=== PATIENT | female | born 1955 | race Caucasian/White ===

== ENCOUNTER → 2019-04-05 13:48 | Outpatient (BNVA) | payer OTHER, SELFPAY | PROVIDERS: Family Provider Nurse Practitioner; PCP Nurse Practitioner; Referring Provider Nurse Practitioner; Visit Provider Specialist | DX: M25.522 Pain in left elbow (principal) | CPT/HCPCS: 73080 ==

== ENCOUNTER 2019-09-06 13:13 | Outpatient (CLI) | payer OTHER, SELFPAY ==
--- NOTE | 2019-09-06 13:16 | MM_ITS ---
WS: [id number] BILATERAL DIGITAL SCREENING MAMMOGRAM WITH CAD CLINICAL INFORMATION: SCREENING HISTORY: Screening mammogram. No current complaints. COMPARISON: TECHNIQUE: Bilateral CC and MLO. FINDINGS: The breast are composed of extremely dense tissue, which can limit the detection of small underlying mass lesions. No suspicious focal mass, asymmetry, calcifications, or architectural distortion. No ev idence of malignancy. Stable tiny punctate calcifications. MM/[place] [id number] IMPRESSION: BI-RADS: 2-Benign FOLLOW UP: 1 Year Follow-up Recommend return to annual screening mammography.
== END 2019-09-06 13:14 | disposition home or self-care (01) ==
LOC: RADSHAW 13:14
PROVIDERS: PCP Nurse Practitioner; Visit Provider Nurse Practitioner
DX: Z12.31 Encounter for screening mammogram for malignant neoplasm of breast (principal)
CPT/HCPCS: 77067

== ENCOUNTER 2020-06-24 08:34 | Emergency (ER) | payer OTHER, MEDICARE, SELFPAY ==
[2020-06-24 09:09] VITALS: BP 142/90; PULSE 78; RESP 14; TEMP 36.8; O2SAT 98; BMI 22.5
--- NOTE | 2020-06-24 09:44 | USCV_ITS ---
Tawnya Reed Age: 64 Gender: F : 1955 Exam Date: 06/24/2020 10:02 Ordering Phys: Bry Koehler Technologist: Audrey Hale [place] [facility] [place]: CALF TENDERNESS HISTORY: Lower extremity pain. PROCEDURES: Venous duplex imaging was performed in only the right lower extremity. The following venous structures were evaluated: common femoral vein, profunda vein, proximal portion of the greater saphenous vein, superficial femoral vein, and the popliteal vein. In addition, the posterior tibial and peroneal trunk were evaluated. Serial compression, augmentation maneuvers, and spectral Doppler flow evaluation were performed. FINDINGS: Normal 2-D Doppler and augmentation and compressibility throughout the lower extremity venous structures. Additional imaging through the proximal calf veins also reveals no thrombus. Limited evaluation of the greater saphenous vein is patent with no thrombus.. CONCLUSIONS No evidence of right lower extremity DVT. Rocco Shafer MD (Electronically Signed) Final Date: 25 June 2020 16:03 S
--- NOTE | 2020-06-24 09:47 | W.ED.EXTPRO ---
HPI - Extremity Problem General: Chief complaint: Extremity Problem,Nontraumatic Stated complaint: POSS BLOOD CLOT IN LEG Time Seen by Provider: 06/24/20 09:32 History of Present Illness: HPI Narrative: Patient is a 64-year-old female comes to the ED with nontraumatic pain in right lower leg. Patient says that cramping and aching pain in right lower leg started approximately 4 days ago. Last night she started developing right calf tenderness as well. Patient is concerned for possible blood clot and says she took the [employer] Covid vaccine back on May 30. She denies any chest pain, shortness of breath, hemoptysis or history of blood clots. Patient states she is not on any current blood thinners. Associated symptoms: Deny chest pain, fever(s) or rash Review of Systems Const: Denies: fever(s), chills or fatigue Eyes: Denies: change in vision or eye discomfort ENMT: Denies: throat pain, odynophagia, nasal discharge or nasal congestion Card: Denies: chest pain, palpitations, edema, swelling of feet/ankles, dyspnea on exertion or orthopnea Resp: Denies: dyspnea, productive cough or non-productive cough GI: Denies: abdominal pain, nausea, vomiting, diarrhea, constipation or hematochezia : Denies: flank pain, dysuria or hematuria Musc: Reports: extremity pain (Right lower leg); Denies: neck pain, back pain or extremity swelling Skin/Breast: Denies: rash or new lesions Neuro: Denies: headache(s), numbness in extremities or weakness in extremities [facility] PFSH: Medical History Chronic hypertension Diagnosed in 1999 and is controlled with medication managed by the [facility]. 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 Does not have a paver layer No pertinent past medical history Denies diabetes, asthma, hypertension, seizures, DVT/PE PCP: MIGUEL Card[facility] ([facility]) PTSD (post-traumatic stress disorder) Takes antianxiety antidepressive meds for this [facility]. Type 2 diabetes mellitus Diet controlled and she states that her last hemoglobin A1c was close to normal Surgical History Hx of vaginal surgery Operative reports were requested and received from Dr. Elizalde. 06/20/2012-----> patient underwent an anterior and posterior colporrhaphy for cystocele and rectocele, manuelito plication. On exam in the clinic she had been noted to have a grade 3 bladder prolapse with MARITO prior to surgery. S/P arthroscopic surgery of right knee Arthroscopic right knee surgery for torn cartilage in 1977, [place] S/P cholecystectomy Laparoscopic cholecystectomy in 2012 S/P hysterectomy LAVH, BSO, Laparoscopic uterosacral ligament suspension with laparoscopic moschcowitz culdoplasty (enterocele repair) on 11/10/[address] He and Dr. Han. Pathology showed benign cervix, endometrium, myometrium and bilateral tubes and ovaries. S/P lumpectomy, left breast x2- Performed in [place] S/P tonsillectomy Done at age 43 S/P tubal ligation Done through umbilicus. Status post hysteroscopy 1998- with endometrial ablation, Performed in [place] for menorrhagia Status post surgery Skin cancer removal: 2002- removed from face. Performed in [place] 2014- Removed from arm by Dr Harrison in [place], [place] Family History Sister Breast cancer diagnosed at age 40 Mother Hyperlipidemia Hypertension Father Breast cancer Heart disease Hypertension Grandmother Diabetes maternal Denies family history of Colon cancer Ovarian cancer Uterine cancer Thyroid condition Stroke Physical Exam Const: COMMON NORMALS: no acute distress, patient oriented x3 and alert GENERAL APPEARANCE: cooperative and comfortable HENMT: COMMON NORMALS: normocephalic HEAD & SCALP: normocephalic MOUTH: Normal oral and palatal mucosa present THROAT: posterior oropharynx normal and uvula midline Neck/C-Spine: COMMON NORMALS: supple GENERAL: Yes normal visual inspection Resp: COMMON NORMALS: normal respiratory effort, No retractions, No use of accessory muscles and clear to auscultation bilaterally EFFORT & INSPECTION: Yes able to speak in complete sentences, No tachypneic, No respiratory distress and No labored AUSCULTATION: clear to auscultation bilaterally Cardio: COMMON NORMALS: regular rate, regular rhythm, S1 normal heart sound present, S2 normal heart sound present, No gallops present (Cardio), No clicks present (Cardio), No murmurs present (Cardio) and Peripheral pulses 2+ throughout RATE: regular rate RHYTHM: regular rhythm HEART SOUNDS: S1 normal heart sound present and S2 normal heart sound present PERIPHERAL PULSES: Peripheral pulses 2+ throughout GI: COMMON NORMALS: Normal to inspection, nondistended, normoactive bowel sounds present, Soft to palpation, non-tender and no masses PALPATION: Yes Soft to palpation : COMMON NORMALS: Yes no CVA tenderness BLADDER/KIDNEY EXAM: Yes no CVA tenderness Back/Pelvis: COMMON NORMALS: no CVA tenderness Extremity: COMMON NORMALS: no pedal edema GENERAL: Yes normal exam except as noted and Yes calf tenderness (Right calf tenderness) Neuro: COMMON NORMALS: patient oriented x3 and moves all extremities SENSORIUM/ORIENTATION: Yes alert Skin: GENERAL SKIN EXAM: dry skin Course Vital Signs: Vital signs: Vital Signs Temperature 98.3 F 06/24/20 09:09 Pulse Rate 68 06/24/20 10:56 Respiratory Rate 18 06/24/20 10:56 Blood Pressure 142/90 06/24/20 09:09 Pulse Oximetry 97 06/24/20 10:56 MDM - Extremity (Nontraumatic) MDM Narrative: Medical decision making narrative: Patient is a 64-year-old female comes to the ED with nontraumatic right lower extremity pain. Patient took [employer] shot back on May 30, 2020 and is concerned for potential blood clot. Denies any chest pain, shortness of breath or hemoptysis. Denies any past history of blood clots. On exam patient appears nontoxic does not in any acute distress. Vital stable. she does have some right calf tenderness. Ultrasound venous duplex of right lower extremity showed no DVTs or blood clots seen. Patient was diagnosed with right lower extremity pain and discharged home. She was told to rest ice and elevate right leg and to take aray-vzt-gzbluol ibuprofen or Tylenol for pain. Return to ED precautions given. Follow-up with PCP in 7 to 10 days reevaluation. Patient rested and agree with plan. Imaging Data^: US Vascular: Attestation: I personally reviewed and interpreted this imaging study as follows: Radiologist's impression: Ultrasound venous duplex right lower extremity?no DVTs or blood clots seen. Discharge Plan Discharge Patient Disposition: Home Clinical Impression: Lower extremity pain, right Condition: Stable Prescriptions: No Action albuterol sulfate 90 mcg/actuation aerosol powdr breath activated 1 inh INHALATION ONCE RF: 0 amlodipine 5 mg tablet 5 mg PO QDAY RF: 0 buspirone 10 mg tablet 10 mg PO BID RF: 0 cyanocobalamin (vitamin B-12) 1,000 mcg capsule 1,000 mcg PO QDAY RF: 0 fluoxetine 20 mg capsule 20 mg PO QDAY RF: 0 gemfibrozil 600 mg tablet 600 mg PO QDAY RF: 0 hydrochlorothiazide 25 mg tablet 25 mg PO QAM RF: 0 omeprazole 20 mg capsule,delayed release(DR/EC) 20 mg PO QDAY RF: 0 metoprolol succinate 25 mg capsule,sprinkle,ER 24hr 25 mg PO QDAY RF: 0 budesonide-formoterol [Symbicort] 160-4.5 mcg/actuation HFA aerosol inhaler 2 puff INHALATION BID RF: 0 oxybutynin chloride 5 mg tablet extended release 24hr 5 mg PO DAILY Qty: 60 RF: 0 Discharge Orders: Discharge ED (Routine); Ordered 06/24/20 Ordered By: Bry Koehler Referrals: Jackie Jenkins FNP [Primary Care Provider] - Discharge Diet: Regular Discharge Activity: Resume usual activity Activity Restrictions/Additional Instructions: Follow-up with medical provider as directed in 7 to 10 days for reevaluation. Rest, ice and elevate right leg. Take uwzm-qvr-kzhyaww ibuprofen, Tylenol or Aleve to help with pain. Continue taking all home medications as prescribed. Return to the ER or your medical provider if condition worsens. Please read and understand discharge instructions. If any questions, please ask. Coding Level of Care Code ED Tenant Relations Coordinator for Paul Fwd Exam Comprehensive
[2020-06-24 10:56] VITALS: PULSE 68; RESP 18; O2SAT 97
== END 2020-06-24 10:58 | disposition home or self-care (01) ==
PROVIDERS: Emergency Provider Physician Assistant; PCP Nurse Practitioner
DX: M79.604 Pain in right leg (principal); J44.9 Chronic obstructive pulmonary disease, unspecified; I10 Essential (primary) hypertension; E11.9 Type 2 diabetes mellitus without complications
CPT/HCPCS: 93971; 99282

== ENCOUNTER 2020-10-07 14:17 | Outpatient (CLI) | payer OTHER, MEDICARE, SELFPAY ==
[2020-10-07 16:52] LABS: Basophils % 0.7 %; Eosinophils # 0.1 10^3/uL (0.0-0.8); Eosinophils % 1.9 %; Hematocrit 37.1 % (37.0-47.0); Hemoglobin 12.6 g/dL (11.5-15.3); Lymphocytes # 1.9 10^3/uL (0.8-4.8); Lymphocytes % 32.7 %; Mean Corpuscular Hemoglobin 31.9 pg (28.0-34.0); Mean Corpuscular Volume 93.9 fL (81-99); Mean Platelet Volume 9.7 fL (7.4-10.4); Monocytes # 0.3 10^3/uL (0.2-0.9); Monocytes % 4.9 %; Neutrophils # 3.38 10^3/uL (1.8-7.7); Neutrophils % 59.4 %; Nucleated Red Blood Cells % 0 %; Platelet Count 450 10^3/cmm (130-400); Red Blood Count 3.95 10^6/uL (4.1-5.3); Red Cell Distribution Width 13.2 % (12.1-15.1); White Blood Count 5.7 10^3/uL (4.0-10.0)
[2020-10-07 17:24] LABS: Alanine Aminotransferase 10 U/L (0-33); Albumin Level 4.2 g/dL (3.5-5.2); Alkaline Phosphatase 92 IU/L (35-105); Anion Gap 14.9 (5-19); Aspartate Amino Transferase 14 U/L (0-32); Blood Urea Nitrogen 8 mg/dL (8-23); Calcium 9.5 mg/dL (8.5-10.5); Carbon Dioxide 29 mmol/L (22-29); Chloride 95 mmol/L (98-107); Globulin 3.9 g/dL (1.3-4.6); Glomerular Filtration Rate 83.5 mL/min (90-130); Glucose 204 mg/dL (65-115); Iron 65 ug/dL (37-145); Lactate Dehydrogenase 175 U/L (135-214); Osmolality Calculated 286 mOsm/kg (285-295); Percent Saturation 20.3 % (20-50); Sodium 136 mmol/L (136-145); Thyroid Stimulating Hormone 0.57 uIU/mL (0.27-4.20); Total Bilirubin 0.3 mg/dL (0.15-1.2); Total Iron Binding Capacity 319 mcg/dl; Total Protein 8.1 g/dL (6.6-8.7); Unsaturated Iron Binding 254 ug/dL (112-347)
[2020-10-07 17:40] LABS: Potassium 2.9 mmol/L (3.5-5.1)
--- NOTE | 2020-10-07 17:55 | ONC CON_ITS ---
Dr. Collazo New Patient Note Patient: Tawnya Reed Unit #: [id number]: 1955 Dicatated By: Moisés Collazo M.D.Date of Visit: Oct 07, 2020 Onc MED New Patient/Consult Referring Physician: Jackie Jenkins A.P.N. Chief Complaint: Thrombocytosis. History of Present Illness: This is a 65-year-old woman with a persistent, mild thrombocytosis. She has multiple medical illnesses, the most significant being COPD and pulmonary fibrosis. She indicates that she also has asbestosis. She apparently is being put on the list for lung transplant. She has been seeing Jackie Jenkins at the [facility] for her primary care. I have been asked to see her because of several recent blood counts have shown a mildly elevated platelet count. The initial study, from 09/12/2019, showed hemoglobin 14.9 g and hematocrit 43.7%. Red cell indices were normal. The white blood cell count was 7600 and the platelet count was 412,000. Her repeat CBC on 06/10/2020 showed similar findings. The most recent study, from 08/13/2020 showed hemoglobin 14.6 g with hematocrit 41.6%. The white blood cell count was 8800 and the platelet count was 441,000. She complains that she feels tired all the time, but that has been going on for quite a while. She is able to do light work. ECOG score is 1. Her appetite has not been good, and she has had episodes of nausea and vomiting, which she attributes to medication for her lung disease. She has had a weight loss of 13 pounds since May. She has not had fever. She sometimes has sweating at night. She has some sinus drainage and she has sore throat which comes and goes. She is short of breath with activity. She was having constant cough for 10 years, that has improved on her medication. She sometimes has chest pain, mostly in the upper right chest area. She has had chronic abdominal pain in the right upper quadrant area for at least the past 10 years. A specific cause for that has not been determined. She also has GERD and she has a history of Mclaughlin's esophagus. She has diarrhea, which she also attributes to the medication. She has not been aware of any blood in the stool. Her bladder function has been okay since the surgery in 2019. She has joint pain, mainly in the hips and knees. She also has back pain. She used to have migraine headaches, but those have resolved. She has occasional orthostatic lightheadedness. She reports having some pressure in the left side of her head. She has numbness in her right foot. She has chronic anxiety and depression, but it is adequately managed with medication. She also has chronic insomnia. She reports having easy bruising. She has no history of thromboembolic disease. Past Medical History: Her medical history includes anxiety, chronic abdominal pain, chronic obstructive pulmonary disease, depression, gastroesophageal reflux disease and history of Mclaughlin's esophagus, hyperlipidemia, hypertension, osteoporosis, post traumatic stress disorder, pulmonary asbestosis, pulmonary fibrosis, type II diabetes, and vitamin B12 deficiency. Past Surgical History: Her surgical/procedural history includes excision of benign breast lesions in 1997 and in 1999, bilateral cataract excisions in 2020, EGD and colonoscopy in 2019, laparoscopic vaginal hysterectomy/BSO and bladder tie up in 2019, excision of benign rectal lesion in 2018, cholecystectomy in 2007, endometrial ablation in 2004, bladder tie up in 2003, tonsillectomy in 2001, excision of basal cell skin cancer in 2000, arthroscopic right knee surgery in 1986, and tubal ligation in 1982. Medications: Albuterol Sulfate ((2.5 mg/3ml) 0.083%) Nebulization solution Inhalation four times a day PRN, Albuterol Sulfate Aerosol Powder, Breath Activated Inhalation 8x/d PRN, amLODIPine Besylate (5 mg) Tablet Oral daily, Bbdmjks-Ppuzeszgzdo-Kyttmnvpmg (160-9-4.8 mcg/act) Aerosol Inhalation b.i.d., busPIRone HCl (10 mg) Tablet Oral t.i.d. PRN, Cyanocobalamin Injection, FLUoxetine HCl 2 (20 mg) Tablet Oral daily, FLUoxetine HCl (20 mg) Capsule Oral daily, Gemfibrozil (600 mg) Tablet Oral ac (bid), hydroCHLOROthiazide (25 mg) Tablet Oral daily, Nintedanib Esylate (150 mg) Capsule Oral b.i.d., Omeprazole (20 mg) Capsule Delayed Release Oral daily, Potassium Chloride (20 meq) Pack Oral daily, Tiotropium [place] Monohydrate Aerosol, solution Inhalation daily, traZODone HCl (50 mg) Tablet Oral at bedtime PRN Allergies: NIKA Inhibitors, Atorvastatin Calcium, levoFLOXacin, oxyCODONE HCl, and SUMAtriptan Succinate. Social History: Ms. Reed is . She is retired from the [employer]. She has a history of smoking 1 pack of cigarettes daily for 40 years. She quit smoking in 2018. She does not drink alcohol. Family History: Father had coronary artery disease and with COPD at age 86. Mother still living age 86. She has coronary disease and peripheral arterial disease. A sister of breast cancer at age 45. Another sister and one brother are in good health. Review Of Symptoms: Constitutional - She complains that she is tired all the time. She is able to do light work. She has not had good appetite, attributable to medication. She has had a weight loss of 13 pounds since May. She has not had fever. She sometimes has sweating at night. ECOG score is 1, Eyes - She had cataract surgery in May, [facility] - No hearing loss or tinnitus. She has sinus drainage and she has sore throat 2 or 3 times a week. She says it comes and goes. She has no difficulty swallowing, Hematologic/Lymphatic - She has easy bruising, Respiratory - She has shortness of breath with more strenuous activity. She was having constant cough for 10 years, but that has improved with her medication. She has had chest pain at times, mostly in the upper right chest area. No hemoptysis, Cardiovascular - She has been seeing Dr. Marrero for chest pain, Gastrointestinal - She has episodes of nausea/vomiting, attributable to medication. She has acid reflux. She also has a history of Mclaughlin's esophagus. She also has had diarrhea. No blood in the stool or black stools, Genitourinary (F) - No dysuria or hematuria. No urinary frequency. No urgency or incontinence, Musculoskeletal - She has joint pain, mainly in the hips and knees. She also has back pain, Integumentary - No skin rash or other skin changes, Neurologic - She used to have migraine headaches, but those have resolved. She has occasional orthostatic lightheadedness and she sometimes has pressure on the left side of her head. She has some numbness in the right foot, Psychiatric - She has posttraumatic stress disorder with chronic anxiety and depression. It is adequately managed with medication. She also has chronic insomnia. Vital Signs: Performed on Oct 07, 2020 16:04: 5, 0, 22.46, 1.76 sq.m, 67 in, 97 %, 76 /min, 18 /min, 149/77 mm(hg) (HIGH), 97.1 F (LOW), and 143.4 lbs (HIGH). Physical Examination: Constitutional - She does not appear acutely ill, Eyes - Sclerae nonicteric. Conjunctivae clear, ENMT - No lesions noted in the oral cavity, Neck - No mass or thyromegaly, Hematologic/Lymphatic - No cervical, clavicular, or axillary adenopathy, Respiratory - Lungs are clear with diminished air movement bilaterally, Cardiovascular - Heart rhythm is regular. There is no murmur, gallop, or rub noted, Abdomen - Soft and non-tender. Liver and spleen are not enlarged. There is no abdominal mass or ascites noted and there is no inguinal adenopathy, Back/Spine - No spine or CVA tenderness noted, Extremities - No edema. Dorsalis pedis pulses are palpable bilaterally, Integumentary - No rashes. No suspicious skin lesions noted, Neurologic - No focal neurologic deficits noted. Problem List: 1. Mild thrombocytosis, reactive versus early stage myeloproliferative disease. 2. COPD. 3. Pulmonary fibrosis. 4. Asbestosis. 5. Hypertension. 6. Hyperlipidemia. 7. Type 2 diabetes, diet controlled. 8. GERD and history of Mclaughlin's esophagus. 9. Chronic abdominal pain. 10. Osteoporosis. 11. B12 deficiency. 12. PTSD with chronic anxiety and depression. Problems Addressed with this Encounter and Plan: Patient with persistent, mild thrombocytosis. This may be reactive, but she may very well have an early stage of a myeloproliferative neoplasm. The laboratory findings were reviewed with the patient and we discussed the clinic complications. She will have additional laboratory studies today to include CBC, comprehensive metabolic profile, LDH, sed rate, serum iron studies, and a TSH level. I will also request a molecular panel for myeloproliferative disease and I will review the blood smear. She will have further evaluation as indicated. Signed By: Moisés Collazo M.D. <<Signature on File>>
[2020-10-07 18:47] LABS: Erythrocyte Sedimentation Rate 88 mm/hr (0-15)
[2020-10-07 18:53] LABS: LAB Peripheral Smear Sent for Review; Slide Review Slide Review Perform
[2020-10-13 09:48] LABS: CALR Exon 9 Mutation NOT DETECTED (NOT DETECTED); CSF3R Exon 14/17 Mutation NOT DETECTED (NOT DETECTED); JAK2 Exon 12 Mutation NOT DETECTED (NOT DETECTED); JAK2 V617 Block Specimen ID NG; JAK2 V617 Clinical Indication NG; JAK2 V617 Mutation NOT DETECTED (NOT DETECTED); JAK2 V617 Specimen Source NG; MPL Exon 12 Mutation NOT DETECTED (NOT DETECTED)
== END 2020-10-07 14:18 | disposition home or self-care (01) ==
PROVIDERS: PCP Nurse Practitioner; Referring Provider Nurse Practitioner; Visit Provider Internal Medicine Medical Oncology
DX: D47.3 Essential (hemorrhagic) thrombocythemia (principal); J44.9 Chronic obstructive pulmonary disease, unspecified; J84.10 Pulmonary fibrosis, unspecified; J61 Pneumoconiosis due to asbestos and other mineral fibers; I10 Essential (primary) hypertension; E78.5 Hyperlipidemia, unspecified; E11.9 Type 2 diabetes mellitus without complications; K21.9 Gastro-esophageal reflux disease without esophagitis; K22.70 Barrett's esophagus without dysplasia; R10.9 Unspecified abdominal pain; G89.29 Other chronic pain; M81.0 Age-related osteoporosis without current pathological fracture; D51.9 Vitamin B12 deficiency anemia, unspecified; F43.10 Post-traumatic stress disorder, unspecified; F41.9 Anxiety disorder, unspecified; F32.9 Major depressive disorder, single episode, unspecified; Z79.899 Other long term (current) drug therapy
CPT/HCPCS: 80053; 81219; 81270; 81339; 83540; 83550; 83615; 84443; 85025; 85651; 88271; 88275; 88377; 99205

== ENCOUNTER 2020-10-09 09:22 | Outpatient (CLI) | payer OTHER, MEDICARE, SELFPAY ==
--- NOTE | 2020-10-09 09:36 | MM_ITS ---
WS: [id number] BILATERAL DIGITAL SCREENING MAMMOGRAPHY WITH CAD CLINICAL INFORMATION: SCREENING HISTORY: Screening mammogram. No current complaints. COMPARISON: September 06, 2019 TECHNIQUE: Bilateral CC and MLO views. FINDINGS: The breasts are composed of heterogeneous fibroglandular density tissue, which can limit the detectio n of small underlying mass lesions. No suspicious mass, asymmetry, calcifications, or architectural d istortion. No evidence of malignancy. Punctate calcifications. MM/[id number] IMPRESSION: BI-RADS: 2-Benign FOLLOW UP: 1 Year Follow-up Recommend return to annual screening mammography.
== END 2020-10-09 09:23 | disposition home or self-care (01) ==
LOC: RADSHAW 09:26
PROVIDERS: PCP Nurse Practitioner; Visit Provider Nurse Practitioner
DX: Z12.31 Encounter for screening mammogram for malignant neoplasm of breast (principal)
CPT/HCPCS: 77067

== ENCOUNTER 2020-10-31 07:26 | Outpatient (CLI) | payer OTHER, MEDICARE, SELFPAY ==
--- NOTE | 2020-10-31 07:38 | NMCV_ITS ---
NM emilia perf SPECT r/s* [id number] Tawnya Reed Age: 65 Gender: F : 1955 Exam Date: 10/31/2020 07:38 Ordering Phys: Aldo Marrero MD ([email or web address]) Technologist: ALEE Nolasco Exam Location: [facility] Indications: SHORTNESS OF BREATH STRESS TEST [facility] IMAGE PROTOCOL Rest/Stress 1 Dobutamine Day Radiopharmaceutical Dose (mCi) Administration Site Administered by Rest: Tc-99m 10.7 IV ALEE Mccann Sestamibi Stress:Tc-99m 32.9 IV ALEE Mccann Sestamisummer Rest: 31-Oct-2020 60 Discovery 630 Stress: 31-Oct-2020 15 Discovery 630 Radiopharmaceutical was injected at 86 % maximum heart rate. Images obtained in supine and prone position. SPECT RESULTS Technical Quality: Excellent Raw Data Analysis: Normal Image Corrections: No attenuation or motion correction applied Summed Stress Score: 0 Summed Rest Score: 0 Summed Difference Score: 0 PERFUSION FINDINGS Fairly uniform myocardial tracer uptake with no significant perfusion abnormalities. FUNCTIONAL RESULTS (calculated via Gated SPECT) Stress Image LV EF (%): 77 Stress EDV (mL):56 TID: 0.97 Stress ESV (mL):13 FUNCTIONAL FINDINGS: Segmental wall motion analysis revealing no gross wall motion abnormalities. IMPRESSIONS 1. Unremarkable myocardial perfusion imaging. 2. Normal LV ejection fraction 77%. 3. LV wall motion analysis revealing no gross wall motion normalities. 4. Normal LV volume. No significant coronary ischemia, based on the above findings Dr Aldo Marrero MD FACC (Electronically Signed) Final Date: 31 October 2020 15:10 S
--- NOTE | 2020-10-31 07:38 | ECG_ITS ---
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 Interpretive Statements NAME OF STUDY: DOBUTAMINE SESTAMIBI STRESS TEST INDICATION: [Shortness of Breath, ] PROCEDURE: At the baseline, the blood pressure was [] with a heart rate of []. The electrocardiogram showed sinus bradycardia with some nonspecific T wave changes.. The dobutamine was infused over a period of 10 minutes and 20 seconds. The maximum heart rate obtained was 137 (89 % of the maximum predicted heart rate). The blood pressure at that time was 148/66 mmHg. The patient was complaining of some chest tightness and shortness of breath with the peak dobutamine infusion. There was no significant electrocardiogram changes with the dobutamine infusion. The physical examination remained unchanged. No arrhythmias were seen on the monitor. Sestamibi was injected at the peak heart rate. During the recovery phase, the patient did not have any specific symptoms. The blood pressure at the end of the recovery phase was 153/74 with a heart rate of 94 per minute. CONCLUSION: 1. Normal EKG response to dobutamine infusion. 2. Patient induced chest tightness /shortness of breath 3. Appropriate heart rate and blood pressure response to review to infusion 4. Sestamibi/Sestamibi perfusion scan pending; see separate report. Electronically Signed On 11-01-2020 0:03:20 CDT by Aldo Marrero M.D. [email or web address]
[2020-10-31 07:52] VITALS: BMI 22.0
[2020-10-31] MEDS: DOBUTtamine 200 MG in sodium chloride 0.9% 34 ML 10 MG IV (09:36)
[2020-10-31] MEDS: atropine 0.1 mg/mL Syr 10 mL 0.5 MG IVP (09:45)
[2020-10-31 09:58] VITALS: BP 153/74; PULSE 97
--- NOTE | 2020-10-31 11:45 | USCV_ITS ---
Derek Tawnya Age: 65 Gender: F : 1955 Exam Date: 10/31/2020 08:06 Ordering Phys: Aldo Marrero MD ([email or web address]) Technologist: Exam Location: [facility] [place] Indication: COPD BP: 125 / 70 HR: 55 Rhythm: Sinus Technical Quality: Good MEASUREMENTS (Male / Female) Normal Values 2D ECHO LV Diastolic Diameter PLAX 3.6 cm 4.2 - 5.9 / 3.9 - 5.3 cm LV Systolic Diameter PLAX 2.0 cm IVS Diastolic Thickness 1.3 cm 0.6 - 1.0 / 0.6 - 0.9 cm IVS Systolic Thickness 1.3 cm LVPW Diastolic Thickness 1.0 cm 0.6 - 1.0 / 0.6 - 0.9 cm LVPW Systolic Thickness 1.2 cm LVOT Diameter 2.0 cm LV Ejection Fraction 2D Teich 76.7 % LV Ejection Fraction MOD 2C 60.7 % LV Ejection Fraction 2C AL 60.7 % LA Diameter 3.8 cm LA Width 3.2 cm LA Height 4.9 cm RA Width 3.7 cm RA Height 5.0 cm Aorta at Sinotubular Diameter 2.7 cm M-MODE LV Diastolic Diameter MM 4.9 cm 4.2 - 5.9 / 3.9 - 5.3 cm LV Systolic Diameter MM 3.5 cm LV Ejection Fraction MM Teich 54.4 % IVS Diastolic Thickness MM 1.3 cm 0.6 - 1.0 / 0.6 - 0.9 cm IVS Systolic Thickness MM 1.4 cm LVPW Diastolic Thickness MM 1.3 cm 0.6 - 1.0 / 0.6 - 0.9 cm LVPW Systolic Thickness MM 1.5 cm RV Diastolic Diameter MM 1.6 cm Aortic Annulus Diameter 3.4 cm LA Ao Ratio MM 1.2 MV E Point Septal Separation 0.6 cm DOPPLER AV Peak Velocity 171.0 cm/s LVOT Peak Velocity 113.0 cm/s AV Area Cont Eq vti 1.5 cm squared AV Area Cont Eq pk 2.2 cm squared MV Area PHT 5.0 cm squared Mitral E to A Ratio 0.8 MV E' Velocity 47.0 cm/s Mitral E to MV E' Ratio 9.9 Mitral E to LV E' Lateral Ratio 10.9 Mitral E to LV E' Septal Ratio 9.0 TR Peak Velocity 170.7 cm/s TR Peak Gradient 11.7 mmHg TV Peak E Velocity 104.0 cm/s Right Atrial Pressure 3.0 mmHg Pulmonary Artery Systolic Pressu 14.7 mmHg FINDINGS Left Ventricle Normal left ventricular size and systolic function, EF 77 %. No regional wall motion abnormalities. Mild left ventricular hypertrophy. Grade I/IV diastolic dysfunction (abnormal relaxation filling pattern), normal to mildly elevated filling pressures. Right Ventricle Normal right ventricular size and systolic function. Can right ventricular free wall Right Atrium The right atrium is normal in size. Left Atrium Left atrium, upper limit of normal size Mitral Valve Trace to mild mitral regurgitation Aortic Valve No gross abnormalities noted Tricuspid Valve No gross abnormalities noted Pulmonic Valve No gross abnormalities noted Pericardium Small pericardial effusion. Aorta Normal ascending aorta dimension. CONCLUSIONS Normal left ventricular size and systolic function, EF 77 %. No regional wall motion abnormalities. Mild left ventricular hypertrophy. Grade I/IV diastolic dysfunction (abnormal relaxation filling pattern), normal to mildly elevated filling pressures. Left atrium, upper limit of normal size. Trace to mild mitral regurgitation. Possible small pericardial effusion There are no intracardiac masses. No similar previous study is available for comparison. Dr Aldo Marrero MD FACC (Electronically Signed) Final Date: 31 October 2020 23:18 S
== END 2020-10-31 07:27 | disposition home or self-care (01) ==
PROVIDERS: PCP Nurse Practitioner; Visit Provider Internal Medicine Cardiovascular Disease
DX: R06.02 Shortness of breath (principal); R07.89 Other chest pain; J44.9 Chronic obstructive pulmonary disease, unspecified; I34.0 Nonrheumatic mitral (valve) insufficiency
CPT/HCPCS: 78452; 93017; 93306; A9500; J0461; J1250; J7050

== ENCOUNTER 2020-12-16 14:18 | Outpatient (CLI) | payer OTHER, SELFPAY ==
[2020-12-16 14:55] LABS: Basophils # 0.1 10^3/uL (0.0-0.1); Eosinophils # 0.2 10^3/uL (0.0-0.8); Eosinophils % 3.3 %; Hematocrit 38.2 % (37.0-47.0); Lymphocytes # 2.2 10^3/uL (0.8-4.8); Mean Corpuscular Hemoglobin 31.6 pg (28.0-34.0); Mean Corpuscular Volume 92.9 fl (81-99); Mean Platelet Volume 9.1 fL (7.4-10.4); Monocytes # 0.4 10^3/uL (0.2-0.9); Neutrophils # 3.18 10^3/uL (1.8-7.7); Neutrophils % 52.7 %; Nucleated Red Blood Cells % 0 %; Platelet Count 397 10^3/cmm (130-400); Red Blood Count 4.11 10^6/uL (4.1-5.3); Red Cell Distribution Width 13.2 % (12.1-15.1)
[2020-12-16 15:29] LABS: C Reactive Protein 13.8 mg/L (0.0-4.9)
[2020-12-17 17:11] LABS: Anti-Nuclear Antibody Screen NEGATIVE (NEGATIVE)
[2020-12-18 12:41] LABS: Erythrocyte Sedimentation Rate 62 mm/hr (0-15)
== END 2020-12-16 14:19 | disposition home or self-care (01) ==
LOC: ONCMED 14:21
PROVIDERS: PCP Nurse Practitioner; Visit Provider Internal Medicine Medical Oncology
DX: D75.839 Thrombocytosis, unspecified (principal); J44.9 Chronic obstructive pulmonary disease, unspecified; I10 Essential (primary) hypertension; E78.5 Hyperlipidemia, unspecified; E11.9 Type 2 diabetes mellitus without complications; K21.9 Gastro-esophageal reflux disease without esophagitis; E53.8 Deficiency of other specified B group vitamins; J84.10 Pulmonary fibrosis, unspecified; Z79.899 Other long term (current) drug therapy; Z87.891 Personal history of nicotine dependence
CPT/HCPCS: 36415; 85025; 85651; 86038; 86140; 86431

== ENCOUNTER → 2020-12-23 09:23 | Outpatient (BNVA) | payer OTHER, SELFPAY | PROVIDERS: PCP Nurse Practitioner; Visit Provider Internal Medicine Cardiovascular Disease | DX: Z01.818 Encounter for other preprocedural examination (principal) | CPT/HCPCS: 80048; 83880; 85025; 85610; 86850; 86900; 87635 ==

== ENCOUNTER 2020-12-24 13:49 | Outpatient (CLI) | payer OTHER, SELFPAY ==
--- NOTE | 2020-12-28 11:28 | ONC FU_ITS ---
Dr. Collazo Patient Follow-Up Note Patient: Tawnya Reed Unit #: [id number]: 1955 Dicatated By: Moisés Collazo M.D.Date of Visit:Dec 24, 2020 Onc Med Follow-up/Prog Note Chief Complaint: Thrombocytosis. History of Present Illness: This is a 65-year-old woman with a persistent, mild thrombocytosis. She has been found on routine follow-up care to have a mildly elevated platelet count. Her CCBC from 09/12/2019 showed nromal hemoglobin at 14.9 g with normal red cell indices. The white blood cell count was 7600 and the platelet count was 412,000. Her repeat CBC on 06/10/2020 showed similar findings. A more recent study, from 08/13/2020 showed hemoglobin 14.6 g with hematocrit 41.6%. The white blood cell count was 8800 and the platelet count was 441,000. I had seen her initially on 10/07/2020. Her CBC showed hemoglobin 12.6 g with hematocrit 37.1%. The red cell indices were normal. The white blood cell count was 5700. The platelet count was slightly elevated at 450,000. There were no remarkable findings on her blood smear. Her sed rate was significantly elevated at 88 mm/hour. Comprehensive metabolic profile was significant for low potassium at 2.9 mmol/L. Renal function was normal and the bilirubin and liver enzymes also were normal. LDH was normal 175 U/mL. A profile of molecular studies for myeloproliferative disorders was negative. Overall, the findings were consistent with a mild reactive thrombocytosis, though a specific underlying cause was not evident. Her other medical illnesses include hypertension, hyperlipidemia, type 2 diabetes, GERD, osteoporosis, and COPD. She has additional history of pulmonary asbestosis and pulmonary fibrosis. She also has history of Mclaughlin's esophagus, B12 deficiency, and chronic anxiety. She has a history of smoking 1 pack of cigarettes daily for 40 years. She is seen for a follow-up visit. She does complain that she feels tired, but she is able to do housework. ECOG score is 1. She complains that she is not hungry, she has gained weight. She does not have fever. She has occasional night sweating, about once a week. Her main complaint is that her whole body aches, mainly in her shoulders/upper arms and in her legs and feet. She has sore throat about every other day. She does not complain of cough. She has shortness of breath with activity. She is on CPAP. She has been having pain in the lateral chest area on both sides, worse on the right than the left. She says her stomach hurts all the time, but especially at night. She also complains that she has acid reflux all the time and she has a lot of gas . She has been having diarrhea. Bladder function has been okay. She also has pain in her lower back and right hip, which is chronic. She has pressure in her head and she occasionally has dizziness. She reports having numbness in her fingers at night. Medications: Albuterol Sulfate ((2.5 mg/3ml) 0.083%) Nebulization solution Inhalation four times a day PRN, amLODIPine Besylate (5 mg) Tablet Oral daily, Qawlqbl-Zqllpnlgrxq-Xbsjqsfgro (160-9-4.8 mcg/act) Aerosol Inhalation b.i.d., busPIRone HCl (10 mg) Tablet Oral t.i.d. PRN, Cyanocobalamin Injection, FLUoxetine HCl 2 (20 mg) Tablet Oral daily, Gemfibrozil (600 mg) Tablet Oral ac (bid), hydroCHLOROthiazide (25 mg) Tablet Oral daily, Nintedanib Esylate (150 mg) Capsule Oral b.i.d., Omeprazole (20 mg) Capsule Delayed Release Oral daily, Potassium Chloride (20 meq) Pack Oral daily, Tiotropium [place] Monohydrate Aerosol, solution Inhalation daily, traZODone HCl (25 mg) Tablet Oral at bedtime PRN Allergies: NIKA Inhibitors, Atorvastatin Calcium, levoFLOXacin, oxyCODONE HCl, and SUMAtriptan Succinate. Vital Signs: Performed on Dec 24, 2020 14:12 Height - 67.00 in Weight - 150.6 lbs (HIGH) BSA - 1.79 sq.m BMI - 23.59 Temperature - 97.2 F (LOW) Pulse - 64 /min Respiration - 18 /min BP - 125/73 mm(hg) O2 Sat - 98 % Pain - 0 Fatigue - 5 Physical Examination: Constitutional - She looks pretty good generally, Eyes - Sclerae nonicteric. Conjunctivae clear, ENMT - No lesions noted in the oral cavity, Hematologic/Lymphatic - No cervical, clavicular, or axillary adenopathy, Respiratory - Lungs are clear with diminished air movement bilaterally, Cardiovascular - Heart rhythm is regular. There is no murmur, gallop, or rub noted, Abdomen - Soft. Liver and spleen are not enlarged. There is no abdominal mass or ascites noted and there is no inguinal adenopathy, Extremities - No edema, Neurologic - No focal neurologic deficits noted. Lab/Imaging: Test performed on Dec 16, 2020 14:41 ESR (Sed Rate) 62 mm/hr WBC 6.0 10 3/uL RBC 4.11 10 6/uL HGB 13.0 g/dL HCT 38.2 % MCV 92.9 fl MCH 31.6 pg MCHC 34.0 g/dL RDW 13.2 % Platelet Count 397 10 3/cmm MPV 9.1 fL Neutrophils 3.18 10 3/uL Lymphocytes 2.2 10 3/uL Monocytes 0.4 10 3/uL Eosinophils 0.2 10 3/uL Basophils 0.1 10 3/uL Neutrophil % 52.7 % Lymphocyte % 36.0 % Monocyte % 7.0 % Eosinophil % 3.3 % Basophils % 1.0 % NRBC % 0 % TATY NEGATIVE TATY IFA is a first line screen for detecting the presence of up to approximately 150 autoantibodies in various autoimmune diseases. A negative TATY IFA result suggests an TATY-associated autoimmune disease is not present at this time, but is not definitive. If there is high clinical suspicion for Sjogren's syndrome, testing for anti-SS-A/Ro antibody should be considered. Anti-Angeles-1 antibody should be considered for clinically suspected inflammatory myopathies. AC-0: Negative International Consensus on TATY Patterns (https://doi.org/10.1515/bhlg-9562-9600) For additional information, please refer to http://education.Copiun.Virtualmin/faq/RYJ169 (This link is being provided for informational/ educational purposes only.) THIS TEST WAS PERFORMED AT: [facility] ( [facility] [address] [address] [place] [address] YURI MANN DO,MPH Problem List: 1. Mild thrombocytosis, presumed to be reactive. 2. COPD. 3. Pulmonary fibrosis. 4. Asbestosis. 5. Hypertension. 6. Hyperlipidemia. 7. Type 2 diabetes, diet controlled. 8. GERD and history of Mclaughlin's esophagus. 9. Chronic abdominal pain. 10. Osteoporosis. 11. B12 deficiency. 12. PTSD with chronic anxiety and depression. Problems Addressed with this Encounter and Plan: Patient with persistent, mild thrombocytosis. This is presumed to be reactive, as her laboratory studies also showed a significantly elevated sed rate and the molecular profile for myeloproliferative disorders was completely negative. Her more recent laboratory studies showed platelet counts in the upper normal range. Sed rate remained significantly elevated and her CRP also was significantly elevated at 13.8 mg/L. She had a negative screening TATY and her RA titer was normal at 10.0 IU/mL. She does have significant musculoskeletal pain, and with the elevated sed rate and CRP, she may very well have polymyalgia rheumatica. As such, I am going to give her a trial of steroid therapy with prednisone, initially at 10 mg twice daily. She will be scheduled for a 2-week interval follow-up visit. Signed By: Moisés Collazo M.D. <<Signature on File>>
== END 2020-12-24 13:50 | disposition home or self-care (01) ==
LOC: ONCMED 13:52
PROVIDERS: PCP Nurse Practitioner; Visit Provider Internal Medicine Medical Oncology
DX: D47.3 Essential (hemorrhagic) thrombocythemia (principal); J44.9 Chronic obstructive pulmonary disease, unspecified; J84.10 Pulmonary fibrosis, unspecified; J61 Pneumoconiosis due to asbestos and other mineral fibers; I10 Essential (primary) hypertension; E78.5 Hyperlipidemia, unspecified; E11.9 Type 2 diabetes mellitus without complications; K21.9 Gastro-esophageal reflux disease without esophagitis; K22.70 Barrett's esophagus without dysplasia; M81.0 Age-related osteoporosis without current pathological fracture; D51.9 Vitamin B12 deficiency anemia, unspecified; F43.10 Post-traumatic stress disorder, unspecified; F41.9 Anxiety disorder, unspecified; F32.9 Major depressive disorder, single episode, unspecified; Z79.899 Other long term (current) drug therapy
CPT/HCPCS: 99214

== ENCOUNTER 2020-12-26 07:14 | Day surgery (SDC) | payer OTHER, SELFPAY ==
--- NOTE | 2020-12-26 07:30 | XACV_ITS ---
Exam Room: 1 Ht: 173 cm Wt: 66 kg BSA: 1.78 m2 Gender: Female : 1955 Any Known Allergies: Other Exam Priority: Routine Procedure(s): Procedure Description: Diagnostic procedure Procedure Description: Left Heart Catheterization Procedure Description: Right Heart Catheterization Procedure Description: Left ventriculography Procedure Description: O2 saturation Procedure Description: Coronary Angiography [facility]; Diagnostic Cath Status: Elective Diagnostic Findings * Coronary angiography shows right dominance. * The left main is a medium caliber vessel with no significant stenotic lesions. * The left anterior descending artery is a medium caliber vessel which wrap around the LV apex minimally. The proximal and the mid LAD was found to have 20 to 30% diffuse irregular narrowing. Minimal calcification was noted to the proximal segment of the artery. No significant stenotic lesions were noted. The first diagonal branch also was found to have minimal intimal irregularities.. * The circumflex artery is a small to medium caliber nondominant vessel with minimal intimal irregularities. No significant stenotic lesions were noted. * The right coronary artery is a medium caliber dominant vessel which was found to have diffuse intimal regularities in the proximal and distal segments. No significant stenotic lesions were noted. Conclusions 1. Normal left ventricular systolic function. Ejection fraction of 55%. 2. 65-year-old white female with a history of pulmonary fibrosis, anticipating. 3. 65-year-old white female with a history of pulmonary fibrosis presents with complaints of chest pain. She had a myocardial perfusion imaging which was unremarkable. Patient is planning to have lung transplant. The transplant team wanted her to have a right and left heart catheterization prior to the procedure. Patient underwent left and right heart catheterization with left and right coronary angiogram and LV angiogram today. The findings are as follows. 4. 1. Mild diffuse coronary artery disease with no significant obstructive lesions. 2. LVEDP of 17 mmHg. LV ejection fraction around 60% by LV gram. 2. The right heart catheterization revealed PA pressure 25/12 with a mean of 16 mmHg. RV pressure 26/1, RA pressure of 4. Pulmonary capillary wedge pressure was 7 mmHg. Cardiac output of 3.0 with an index of 2. Recommendations * Continue current medical management and risk factor modification. Diagnostic RX Recommendation: medical therapy and/or counseling LV EDP: 7 mmHg Ventriculography Ejection Fraction: 60.0 % Left Ventriculography Findings: * LV gram was performed the JOHNSON position. The LV cavity appears to be normal size. There was no significant mitral valve prolapse or mitral regurgitation. There ejection fraction was around 60%. No intracardiac masses. No filling defects. LVEDP was 7 mmHg.. Pressures Phase:Rest AO : 131 / 72 ( 96 ) @ 8:25:00 AM 137 / 65 ( 92 ) @ 8:31:00 AM 129 / 55 ( 76 ) @ 8:37:00 AM 136 / 39 ( 86 ) @ 8:37:00 AM LV : 137 / -2 / 14 @ 8:36:00 AM 134 / -2 / 18 @ 8:36:00 AM 145 / -5 / 17 @ 8:37:00 AM RV : 26 / 1 / 6 @ 8:20:00 AM PA : 23 / 10 ( 14 ) @ 8:18:00 AM 25 / 12 ( 16 ) @ 8:19:00 AM RA : a wave = 7 v wave = 4 mean = 4 @ 8:21:00 AM PCW : a wave = 8 v wave = 7 mean = 6 @ 8:18:00 AM a wave = 10 v wave = 9 mean = 7 @ 8:19:00 AM Hemodynamic Findings The pulmonary capillary wedge pressure was 7 mmHg. PA pressure 25/12 with a mean of 16. RV pressure was 26/1. Right atrial pressure was 4 . The cardiac output by Nura's was 3.0 with an index of 2. O2 Content Phase:Rest PA : O2 Content O2: 63.9 @ 8:37:00 AM Saturations Phase:Rest AO : 93 @ 8:25:00 AM RA : 61 @ 8:37:00 AM RV : 61 @ 8:31:00 AM PA : 64 @ 8:37:00 AM Cardiac Output Phase:Rest Nura : 3 @ 9:53:31 AM Nura Cardiac Index: 2 @ :53:31 AM Flow Phase:Rest Qp : 3 @ :53:31 AM Qs : 3 @ :53:31 AM Valves Phase:DefaultPhase AV : 13.0 @ 9:53:31 AM AV Mean Gradient: 31.0 @ 9:53:31 AM AV Flow: 119 @ 9:53:31 AM AV Area: 0.5 @ 9:53:31 AM AV Area Index: 0.27 @ 9:53:31 AM Clinical Evaluation EBL: 5mL-10mL Procedural Details Pre-Procedure Time Out. Identified patient by full name and date of as verbalized by the patient/guarantor. Does the consent match the physician's order: Yes. Accurate & Complete Informed Consent: Yes. Inpatient/Outpatient History & Physical on Chart: Yes. If H&P is completed, is and addenduem needed: N/A. Visualize and Verify Site with Patient/Guarantor: N/A. Relevant Radiology Images available: Yes. Pre-op teaching completed and patient verbalized understanding. The risks, benefits, and alternatives of sedation and/or procedure were discussed by physician. The patient agrees to continue. Procedure started. [facility] Clinical Fraility Score: 4: Vulnerable. 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 Chest Pain Symptom Assessment: Atypical Angina. Cardiovascular Instability: No. PERRLA. Strong, equal hand thermodynamics engineer bilaterally. Lungs clear x 5 lobes. Correct patient, site and procedure confirmed by cath team. IV Site on Arrival: 18 gauge in the left anticubital. IV Fluids: 0.9% NaCl at KVO. 0 mL infused prior to labor/excavator. Pre Procedural Pulses: bilateral dorsalis pedis was 2+. Pre Procedural Pulses: bilateral posterior tibial was 2+. Pre Procedural Pulses: bilateral radial was 2+. right radial was prepped with chloroprep then draped in the usual sterile fashion. right brachial was prepped with chloroprep then draped in the usual sterile fashion. Physician notified. Patient's family in CPRU room #3. Dr. Marrero will update after procedure. Equipment: 6F - Radial. Cardiac Cath Pack. ACIST Manifold Kit Model BT 2000. Heparinized Saline (2 units/mL), 1000 mL bag. Physician arrived. Baseline sample Acquired. HR: 53 BPM. Physician scrubbed in. Immediate Pre-Procedure Time Out. Correct Patient: Yes; Correct Procedure: Yes; Correct Site: Yes; Correct Patient Position: Yes; Correct Supplies: Yes; Dried Flammable Prep: Yes; Blood Products Available: N/A;. Wire in through the IV catheter in the right brachial vein. Lidocaine 1% infiltrated to the right brachial. hand injection performed through the existing IV in the right brachial vein. Wire out. Wire in through the IV catheter in the right brachial vein. Wire out & 22 guage IV cath heplocked and secured with a venagard after flushing with saline. Unable to thread the wire through the right brachial vein, will move to groin access for RHC. Lidocaine 1% infiltrated to the right radial. Unable to obtain radial access. MD attempting to gain access in the Femoral artery. Add Inventory: Micropuncture Kit x 2, 5 fr femoral sheath, 6 fr femoral sheath. Pressure dressing applied to the right radial by Gonzales Cervantes RN, HIGH SCHOOL TEACHER per Dr. Marrero's order. Lidocaine 1% infiltrated to the right groin. Venous access obtained with a micropuncture set. Arterial access obtained with micropuncture set. [place]akshi MON catheter inserted. [place] wire in. Pressure measurements obtained. ABG drawn and sent with respiratory therapy. Oximetry samples were obtained. Normal venous range: 60-85%. Normal arterial range: 95-100%. [place]akshi out. A 5 korean JL4 catheter in over wire. Multiple views taken of left coronary artery. Catheter removed over the exchange wire. A 5 korean JR4 catheter in over wire. Multiple views taken of right coronary artery. Catheter removed over the exchange wire. A 5 korean Angled Pig catheter in over wire. Oxygen started at 3liters/min via nasal canula. EDP Sample taken: LV 137/-3,14; HR: 53 BPM; SpO2: 99%. LV gram performed in JOHNSON @ 10 mL/second for a total of 30 mL. EDP Sample taken: LV 134/-3,18; HR: 53 BPM; SpO2: 99%. Pullback taken: LV 145/-6,17; AO 129/55(76); Mean: 31mmHg, Peak to Peak: 13mmHg, SEP: 26sec/min; HR: 67 BPM; SpO2: 99%. Catheter removed over the exchange wire. Physician review of cine films. Physician scrubbed out. Patient's family updated. Sheath(s) removed and manual pressure held until hemostasis was achieved. Sterile 4x4 and Op-site applied to the puncture site. No oozing or hematoma noted. Post sheath removal instructions were given and the patient verbalized understanding. Post Procedure: Pulses reassessed and unchanged. PERRLA. Strong, equal hand thermodynamics engineer bilaterally. No VTE prophylaxis required. Medication's Wasted: Lidocaine 1% = 5 mL. Medication's Wasted: Heparin = 4500 units. Medication's Wasted: Nitro = 49.8 mg. Medication's Wasted: Verapamil = 5 mg. Total IV fluids: 73 mL. Post-op diagnosis: Mild diffuse CAD, Normal PA pressure, Normal EF. Complications: none. Estimated blood loss: 5mL-10mL. Procedure completed. Patient transferred by bed to 1st floor. Vital chart was stopped. Access Site Site: Right Femoral vein Sheath Size: 6 Fr Hemostasis Success: Unsuccessful Site: Right Radial artery Sheath Size: 5 Fr Hemostasis Success: Unsuccessful Procedure Medications Start: 8:48 AM Stop: 8:48 AM Medication: Versed Amount: 1 mg Route: I.V. Start: 8:49 AM Stop: 8:49 AM Medication: Fentanyl Amount: 50 mcg Route: I.V. Start: 8:51 AM Stop: 8:51 AM Medication: Versed Amount: 1 mg Route: I.V. Start: 8:51 AM Stop: 8:51 AM Medication: Versed Amount: 1 mg Route: I.V. Start: 8:54 AM Stop: 8:54 AM Medication: Nitrogylcerin Amount: 200 mcg Route: I.V. Start: 9:06 AM Stop: 9:06 AM Medication: Versed Amount: 1 mg Route: I.V. Start: 9:25 AM Stop: 9:25 AM Medication: Versed Amount: 1 mg Route: I.V. Start: 9:31 AM Stop: 9:31 AM Medication: Heparin Amount: 1500 units Route: I.V. Start: 9:37 AM Stop: 9:37 AM Medication: Versed Amount: 1 mg Route: I.V. I, the attending physician, have reviewed and verified all procedure medications. Yes, all medications given per verbal order History/Risk Factors Hypertension: Yes Dyslipidemia: Yes Peripheral Arterial Disease (PAD): No Myocardial Infarction (GA): No Obesity: No Renal Disease: No Tobacco Use: Never Prior Interventions PCI: No CABG: No Valve Surgery: No Report Signatures Finalized by Dr Aldo Marrero MD [facility] on 12/26/2020 09:28 PM
[2020-12-26 07:51] VITALS: BP 138/79; PULSE 53; RESP 18; TEMP 36.2; O2SAT 99; BMI 22.1
[2020-12-26] MEDS: diphenhydrAMINE 50 mg Capsule PO (08:15)
--- NOTE | 2020-12-26 08:31 | W.PM.OPSUD ---
Surgery/Procedure H&P Update DATE OF PROCEDURE: December 26, 2020 DATE H&P PERFORMED: 11/28/20 H&P UPDATE INFORMATION: I have reviewed H&P completed within last 30 days, I have examined patient prior to procedure and No changes to prior documentation PREOP DIAGNOSIS: Pulmonary fibrosis/ Lung transplant PLANNED PROCEDURE: Operation Date: 12/26/20 08:30 Proposed Procedures p cardiac catheterization left and right(Bilateral) - Aldo Marrero MD PATIENT REASSESSED PRIOR TO SEDATION, WITH NO CHANGE NOTED: Yes PHYSICAL EXAM: alert, oriented x 3, clear to auscultation bilaterally, regular rate & rhythm and operative site marked AIRWAY EVAL/ANESTHESIA PLAN: normal airway, ASA III, Monitored Anesthesia, Local Anesthesia, Risks, benefits & alternatives of sedation and/or procedure discussed and Patient agrees to continue as planned
[2020-12-26 09:31] LABS: ABG PCO2 46.5 mmHg (35-45); ABG PH Result 7.35 (7.35-7.45); Arterial Blood Gas Hematocrit 48.5 % (37-47); Base Excess ABG -0.4 mmol/L (-2.0-2.0); Blood Gas Allen Test Pos; Blood Gas Operator Identificat MONRO; Blood Gas Sample Site RA; HCO3 ABG 25.8 mmol/L (22-26)
[2020-12-26 09:33] LABS: ABG PCO2 39.2 mmHg (35-45); ABG PH Result 7.41 (7.35-7.45); Arterial Blood Gas Hematocrit 16.5 % (37-47); Base Excess ABG 0.4 mmol/L (-2.0-2.0); Blood Gas Allen Test Pos; PO2 ABG 61.1 mmHg (80.0-100.0)
[2020-12-26 09:34] LABS: Blood Gas Operator Identificat MONRO; Blood Gas Sample Site AO; Blood Gas Sample Type Not specified
[2020-12-26 09:35] LABS: ABG PCO2 48.9 mmHg (35-45); ABG PH Result 7.37 (7.35-7.45); Arterial Blood Gas Hematocrit 29.2 % (37-47); Base Excess ABG 2.3 mmol/L (-2.0-2.0); Blood Gas Allen Test Pos; Blood Gas Operator Identificat MONRO; Blood Gas Sample Site PO; Blood Gas Sample Type Not specified; HCO3 ABG 28.1 mmol/L (22-26)
[2020-12-26 09:36] LABS: Blood Gas Allen Test Pos; Blood Gas Operator Identificat MONRO; Blood Gas Sample Site RV
[2020-12-26 09:39] LABS: ABG PCO2 51.2 mmHg (35-45); ABG PH Result 7.35 (7.35-7.45); Arterial Blood Gas Hematocrit 56.3 % (37-47); Base Excess ABG 1.2 mmol/L (-2.0-2.0); HCO3 ABG 28.2 mmol/L (22-26)
[2020-12-26 09:40] LABS: Blood Gas Sample Type Not specified
[2020-12-26 11:47] VITALS: PULSE 57; RESP 18; O2SAT 95
[2020-12-26 14:00] VITALS: PULSE 52
--- NOTE | 2020-12-26 16:05 | PC.NURSE ---
Patient walked to bathroom. Denied dizziness and pain. Right groin has small (pea sized hematoma at puncture site. No bleeding. Dressing changed. BP 124/67 HR 52 after walking.
[2020-12-26 16:48] VITALS: BP 124/64; PULSE 52; RESP 15; O2SAT 95
[2020-12-31 14:25] LABS: Blood Gas Sample Type Venous
[2020-12-31 14:26] LABS: PO2 ABG 33.3 mmHg (80.0-100.0)
[2020-12-31 14:28] LABS: PO2 ABG 33.7 mmHg (80.0-100.0)
== END 2020-12-26 17:30 | disposition home or self-care (01) ==
LOC: CCL 07:15 → CSU 16:47
PROVIDERS: PCP Nurse Practitioner; Visit Provider Internal Medicine Cardiovascular Disease
DX: I25.10 Atherosclerotic heart disease of native coronary artery without angina pectoris (principal); J44.9 Chronic obstructive pulmonary disease, unspecified; F41.9 Anxiety disorder, unspecified; E11.9 Type 2 diabetes mellitus without complications; F32.9 Major depressive disorder, single episode, unspecified; E78.2 Mixed hyperlipidemia; M79.10 Myalgia, unspecified site
CPT/HCPCS: 36415; 82803; 93453; C1751; C1769; C1887; C1894; G0378; J1644; J2250; J3010; J3490; J7030; Q0163; Q9967

== ENCOUNTER → 2021-01-06 14:45 | Outpatient (BNVA) | payer OTHER, SELFPAY | PROVIDERS: PCP Nurse Practitioner; Visit Provider Nurse Practitioner Family | DX: I10 Essential (primary) hypertension (principal) | CPT/HCPCS: 80048 ==

== ENCOUNTER → 2021-01-15 09:54 | Outpatient (BNVA) | payer OTHER, SELFPAY | PROVIDERS: PCP Nurse Practitioner; Visit Provider Internal Medicine Cardiovascular Disease | DX: I10 Essential (primary) hypertension (principal) | CPT/HCPCS: 80048 ==

== ENCOUNTER 2021-02-10 13:11 | Outpatient (CLI) | payer OTHER, SELFPAY ==
--- NOTE | 2021-02-11 06:56 | ONC FU_ITS ---
Dr. Collazo Patient Follow-Up Note Patient: Tawnya Reed Unit #: [id number]: [id number] Dicatated By: Moisés Collazo M.D.Date of Visit:Feb 10, 2021 Onc Med Follow-up/Prog Note Chief Complaint: Thrombocytosis. History of Present Illness: This is a 65-year-old woman with a persistent, mild thrombocytosis. She had been found on routine follow-up care to have a mildly elevated platelet count. Her CBC from 09/12/2019 showed normal hemoglobin at 14.9 g with normal red cell indices. The white blood cell count was 7600 and the platelet count was 412,000. Her repeat CBC on 06/10/2020 showed similar findings. A CBC from 08/13/2020 showed her platelet count slightly elevated at 441,000. I had seen her initially on 10/07/2020. Her CBC showed hemoglobin 12.6 g with hematocrit 37.1%. The red cell indices were normal. The white blood cell count was 5700. The platelet count was again slightly elevated at 450,000. There were no remarkable findings on her blood smear. Her sed rate was significantly elevated at 88 mm/hour. Comprehensive metabolic profile was significant for low potassium at 2.9 mmol/L. Renal function was normal and the bilirubin and liver enzymes also were normal. LDH was normal 175 U/mL. A profile of molecular studies for myeloproliferative disorders was negative. Overall, the findings were consistent with a mild reactive thrombocytosis, though a specific underlying cause was not evident. I have opted to follow her on expectant management. Her other medical illnesses include hypertension, hyperlipidemia, type 2 diabetes, GERD, osteoporosis, and COPD. She has additional history of pulmonary asbestosis and pulmonary fibrosis. She also has history of Mclaughlin's esophagus, B12 deficiency, and chronic anxiety. She has a history of smoking 1 pack of cigarettes daily for 40 years. INTERIM HISTORY: At her follow-up visit on 12/24/2020 her platelet count was just in the upper normal range at 397,000. Her sed rate was still significantly elevated at 62 mm/h, and her CRP was also significantly elevated at 13.8 mg/L. At that point she was complaining of generalized musculoskeletal pain, and I did have her start low-dose prednisone for suspected polymyalgia rheumatica. She is seen for a follow-up visit. She indicates that she took the prednisone for a month and then stopped it. She said it made her real hungry, but otherwise did not help her symptoms. However, she currently is not having the generalized body aches she complained of previously, so it actually may have held more than she thought. She still complains of having pain that extends from her right upper quadrant area down to her right hip. She says is there all the time and that it feels like gas. It is worse when she is lying down. She says her energy has been okay. She has normal activity. Her appetite has diminished somewhat since she stopped the prednisone. She does not have fever. She has sweating at night once or twice a week. She occasionally has sore throat. She does not complain of cough, and she has not been having shortness of breath or chest pain. She gets nauseated with her medication, occasionally with vomiting. She says she always has acid reflux and she says she has diarrhea most of the time. Bladder function has been okay. She currently has no other joint or bone pain. She sometimes has pressure on the left side of her head and she sometimes has dizziness. She has numbness in her hands and fingers. Medications: Albuterol Sulfate ((2.5 mg/3ml) 0.083%) Nebulization solution Inhalation four times a day PRN, amLODIPine Besylate (5 mg) Tablet Oral daily, Evqfoec-Dgteurayepy-Dmalkjonms (160-9-4.8 mcg/act) Aerosol Inhalation b.i.d., busPIRone HCl (10 mg) Tablet Oral t.i.d. PRN, Cyanocobalamin Injection, FLUoxetine HCl 2 (20 mg) Tablet Oral daily, Gemfibrozil (600 mg) Tablet Oral ac (bid), hydroCHLOROthiazide (25 mg) Tablet Oral daily, Nintedanib Esylate (150 mg) Capsule Oral b.i.d., Omeprazole (20 mg) Capsule Delayed Release Oral daily, Potassium Chloride (20 meq) Pack Oral daily, predniSONE 1 Tablet (of 10 mg) Oral b.i.d., Tiotropium [place] Monohydrate Aerosol, solution Inhalation daily, traZODone HCl (25 mg) Tablet Oral at bedtime PRN Allergies: NIKA Inhibitors, Atorvastatin Calcium, levoFLOXacin, oxyCODONE HCl, and SUMAtriptan Succinate. Vital Signs: Performed on Feb 10, 2021 13:30 Height - 67.00 in Weight - 154.4 lbs (HIGH) BSA - 1.81 sq.m BMI - 24.18 Temperature - 96.2 F (LOW) Pulse - 94 /min Respiration - 16 /min BP - 125/75 mm(hg) O2 Sat - 95 % (LOW) Pain - 3 Fatigue - 5 Physical Examination: Constitutional - She looks pretty good generally, Eyes - Sclerae nonicteric. Conjunctivae clear, ENMT - No lesions noted in the oral cavity, Hematologic/Lymphatic - No cervical, clavicular, or axillary adenopathy, Respiratory - Lungs sound clear with diminished air movement bilaterally, Cardiovascular - Heart rhythm is regular. There is no murmur, gallop, or rub noted, Abdomen - Soft. Liver and spleen are not enlarged. There is no abdominal mass or ascites noted and there is no inguinal adenopathy, Extremities - No edema, Neurologic - No focal neurologic deficits noted. Lab/Imaging: Test performed on Dec 16, 2020 14:41 ESR (Sed Rate) 62 mm/hr WBC 6.0 10 3/uL RBC 4.11 10 6/uL HGB 13.0 g/dL HCT 38.2 % MCV 92.9 fl MCH 31.6 pg MCHC 34.0 g/dL RDW 13.2 % Platelet Count 397 10 3/cmm MPV 9.1 fL Neutrophils 3.18 10 3/uL Lymphocytes 2.2 10 3/uL Monocytes 0.4 10 3/uL Eosinophils 0.2 10 3/uL Basophils 0.1 10 3/uL Neutrophil % 52.7 % Lymphocyte % 36.0 % Monocyte % 7.0 % Eosinophil % 3.3 % Basophils % 1.0 % NRBC % 0 % TATY NEGATIVE TATY IFA is a first line screen for detecting the presence of up to approximately 150 autoantibodies in various autoimmune diseases. A negative TATY IFA result suggests an TATY-associated autoimmune disease is not present at this time, but is not definitive. If there is high clinical suspicion for Sjogren's syndrome, testing for anti-SS-A/Ro antibody should be considered. Anti-Angeles-1 antibody should be considered for clinically suspected inflammatory myopathies. AC-0: Negative International Consensus on TATY Patterns (https://doi.org/10.1515/oozz-3482-4240) For additional information, please refer to http://education.[employer]/faq/ZDL725 (This link is being provided for informational/ educational purposes only.) THIS TEST WAS PERFORMED AT: [facility] [id number] [place] [address] YURI MANN DO,MPH Test performed on Oct 07, 2020 16:08 Iron 65 mcg/dL LDH (Total) 175 U/L Sodium 136 mmol/L TSH 0.57 uIU/mL Iron Binding Capacity (TIBC) 319 mcg/dl Potassium 2.9 mmol/L % Iron Saturation 20.3 % Chloride 95 mmol/L CO2 29 mmol/L UIBC 254 mcg/dL Anion Gap 14.9 BUN 8 mg/dL Creatinine 0.7 mg/dL Cr Clearance (Est) 80.0800 mL/min eGFR 83.5 mL/min Glucose 204 mg/dL Osmolality - Calculated 286 mOsm/kg Calcium 9.5 mg/dL Protein, Total 8.1 g/dL Albumin 4.2 g/dL Globulin 3.9 g/dL Bilirubin, Total 0.3 mg/dL ALT (SGPT) 10 U/L AST (SGOT) 14 U/L Alkaline Phosphatase 92 IU/L CBC Slide Review Slide Review Perform SLIDE REVIEW AGREES WITH AUTOMATED RESULT Problem List: 1. Mild thrombocytosis, presumed to be reactive. 2. COPD. 3. Pulmonary fibrosis. 4. Asbestosis. 5. Hypertension. 6. Hyperlipidemia. 7. Type 2 diabetes, diet controlled. 8. GERD and history of Mclaughlin's esophagus. 9. Chronic abdominal pain. 10. Osteoporosis. 11. B12 deficiency. 12. PTSD with chronic anxiety and depression. Problems Addressed with this Encounter and Plan: 1. Patient with persistent, mild thrombocytosis. This is presumed to be reactive. It is being managed expectantly. She will be scheduled for a follow-up visit with repeat lab studies in 4 months. 2. She had significantly elevated sed rate and CRP levels. She also complained of having generalized body aching, which I felt was suspicious for polymyalgia rheumatica. She took prednisone at a low dosage for 30 days. She reports having no significant improvement in her symptoms, though I am a little skeptical of that, as she no longer complains of the generalized body aching. 3. She reports having constant pain extending from the right upper quadrant area down to the right hip. The cause is uncertain. Signed By: Moisés Collazo M.D. <<Signature on File>>
== END 2021-02-10 13:12 | disposition home or self-care (01) ==
LOC: ONCMED 13:13
PROVIDERS: PCP Nurse Practitioner; Visit Provider Internal Medicine Medical Oncology
DX: D75.838 Other thrombocytosis (principal); J44.9 Chronic obstructive pulmonary disease, unspecified; I10 Essential (primary) hypertension; E78.5 Hyperlipidemia, unspecified; K21.9 Gastro-esophageal reflux disease without esophagitis; E53.8 Deficiency of other specified B group vitamins; R20.0 Anesthesia of skin; E11.9 Type 2 diabetes mellitus without complications; F17.210 Nicotine dependence, cigarettes, uncomplicated
CPT/HCPCS: 99214

== ENCOUNTER 2021-06-17 12:42 | Outpatient (CLI) | payer OTHER, SELFPAY ==
[2021-06-17 13:28] LABS: Basophils # 0.1 10^3/uL (0.0-0.1); Basophils % 0.8 %; Eosinophils # 0.1 10^3/uL (0.0-0.8); Hematocrit 41.3 % (37.0-47.0); Hemoglobin 13.7 g/dL (11.5-15.3); Lymphocytes # 1.3 10^3/uL (0.8-4.8); Lymphocytes % 20.6 %; Mean Corpuscular HGB Conc 33.2 g/dL (30.0-36.0); Mean Corpuscular Hemoglobin 30.2 pg (28.0-34.0); Mean Corpuscular Volume 91.2 fl (81-99); Mean Platelet Volume 9.2 fL (7.4-10.4); Monocytes # 0.4 10^3/uL (0.2-0.9); Monocytes % 5.7 %; Neutrophils % 70.4 %; Nucleated Red Blood Cells % 0 %; Platelet Count 430 10^3/cmm (130-400); Red Blood Count 4.53 10^6/uL (4.1-5.3); Red Cell Distribution Width 13.2 % (12.1-15.1); White Blood Count 6.5 10^3/uL (4.0-10.0)
[2021-06-17 13:53] LABS: Alanine Aminotransferase 17 U/L (0-33); Albumin Level 4.5 g/dL (3.5-5.2); Alkaline Phosphatase 90 IU/L (35-105); Anion Gap 17.4 (5-19); Aspartate Amino Transferase 21 U/L (0-32); Blood Urea Nitrogen 11 mg/dL (8-23); C Reactive Protein 23.8 mg/L (0.0-4.9); Calcium 10.5 mg/dL (8.5-10.5); Carbon Dioxide 26 mmol/L (22-29); Chloride 98 mmol/L (98-107); Globulin 4.3 g/dL (1.3-4.6); Glomerular Filtration Rate 83.5 mL/min (90-130); Glucose 99 mg/dL (65-115); Osmolality Calculated 285 mOsm/kg (285-295); Potassium 3.4 mmol/L (3.5-5.1); Sodium 138 mmol/L (136-145); Total Bilirubin 0.3 mg/dL (0.15-1.2); Total Protein 8.8 g/dL (6.6-8.7)
[2021-06-17 14:04] LABS: Erythrocyte Sedimentation Rate 41 mm/hr (0-15)
--- NOTE | 2021-06-19 10:27 | ONC FU_ITS ---
Cassi Maher Progress Note Patient: Tawnya Reed Unit #: [id number]: 1955 Dicatated By: Cassi Maher N.P.Date of Visit:Jun 17, 2021 Onc MED Follow-up/Prog Note Chief Complaint: Thrombocytosis. History of Present Illness: This is a 65-year-old woman with a persistent, mild thrombocytosis. She had been found on routine follow-up care to have a mildly elevated platelet count. Her CBC from 09/12/2019 showed normal hemoglobin at 14.9 g with normal red cell indices. The white blood cell count was 7600 and the platelet count was 412,000. Her repeat CBC on 06/10/2020 showed similar findings. A CBC from 08/13/2020 showed her platelet count slightly elevated at 441,000. I had seen her initially on 10/07/2020. Her CBC showed hemoglobin 12.6 g with hematocrit 37.1%. The red cell indices were normal. The white blood cell count was 5700. The platelet count was again slightly elevated at 450,000. There were no remarkable findings on her blood smear. Her sed rate was significantly elevated at 88 mm/hour. Comprehensive metabolic profile was significant for low potassium at 2.9 mmol/L. Renal function was normal and the bilirubin and liver enzymes also were normal. LDH was normal 175 U/mL. A profile of molecular studies for myeloproliferative disorders was negative. Overall, the findings were consistent with a mild reactive thrombocytosis, though a specific underlying cause was not evident. I have opted to follow her on expectant management. Her other medical illnesses include hypertension, hyperlipidemia, type 2 diabetes, GERD, osteoporosis, and COPD. She has additional history of pulmonary asbestosis and pulmonary fibrosis. She also has history of Mclaughlin's esophagus, B12 deficiency, and chronic anxiety. She has a history of smoking 1 pack of cigarettes daily for 40 years. INTERIM HISTORY: At her follow-up visit on 12/24/2020 her platelet count was just in the upper normal range at 397,000. Her sed rate was still significantly elevated at 62 mm/h, and her CRP was also significantly elevated at 13.8 mg/L. At that point she was complaining of generalized musculoskeletal pain, and I did have her start low-dose prednisone for suspected polymyalgia rheumatica. Patient presents today for follow-up. She states she has chronic fatigue. Her appetite has been good. No fever, chills, night sweats. No sinus drainage or mouth sores. No shortness of breath, cough, chest pain. She does complain of right upper quadrant abdominal pain that comes and goes. This is also a chronic condition. She denies any problems with her urinary system. No joint or bone pain. No muscle pain or weakness. No headaches or dizziness. Review Of Symptoms: See above. Past Medical History: Anxiety Chronic abdominal pain Chronic obstructive pulmonary disease Depression Gastroesophageal reflux disease History of Mclaughlin's esophagus Hyperlipidemia Hypertension Osteoporosis Post traumatic stress disorder Pulmonary asbestosis Pulmonary fibrosis Type II diabetes Vitamin B12 deficiency Covid virus in 2021 Past Surgical History: Excision of benign breast lesions in 1997 and in 1999 Tubal ligation Covid vaccine #1 dorcas and dorcas in 2020 Bilateral cataract excisions in 2020 EGD and colonoscopy in 2019 Laparoscopic vaginal hysterectomy/BSO and bladder tie up in 2019 Excision of benign rectal lesion in 2018 Cholecystectomy in 2007 Endometrial ablation in 2004 Bladder tie up in 2003 Tonsillectomy in 2001 Excision of basal cell skin cancer in 2000 Arthroscopic right knee surgery in 1986 Tubal ligation in 1982 Allergies: NIKA Inhibitors, Atorvastatin Calcium, levoFLOXacin, oxyCODONE HCl, and SUMAtriptan Succinate. Medications: Albuterol Sulfate ((2.5 mg/3ml) 0.083%) Nebulization solution Inhalation four times a day PRN amLODIPine Besylate (5 mg) Tablet Oral daily Cqvrane-Luxpkvbshxn-Wfryzqdqsl (160-9-4.8 mcg/act) Aerosol Inhalation b.i.d. busPIRone HCl (10 mg) Tablet Oral t.i.d. PRN Cyanocobalamin Injection FLUoxetine HCl 2 (20 mg) Tablet Oral daily Gemfibrozil (600 mg) Tablet Oral ac (bid) hydroCHLOROthiazide (25 mg) Tablet Oral daily Nintedanib Esylate (150 mg) Capsule Oral b.i.d. Omeprazole (20 mg) Capsule Delayed Release Oral daily Potassium Chloride (20 meq) Pack Oral daily predniSONE 1 Tablet (of 10 mg) Oral b.i.d. Tiotropium [place] Monohydrate Aerosol, solution Inhalation daily traZODone HCl (25 mg) Tablet Oral at bedtime PRN Family History: Father had coronary artery disease and with COPD at age 86. Mother still living age 86. She has coronary disease and peripheral arterial disease. A sister of breast cancer at age 45. Another sister and one brother are in good health. Social History: Ms. Reed is . Ms. Reed no longer smokes. She has no history of drinking. She is retired from the [employer]. She has a history of smoking 1 pack of cigarettes daily for 40 years. She quit smoking in 2019. She does not drink alcohol. Physical Examination: Performed on Jun 17, 2021 15:09: Height - 67.00 in, Weight - 155.6 lbs (HIGH), BSA - 1.82 sq.m, BMI - 24.37, Temperature - 97.9 F (LOW), Pulse - 75 /min, Respiration - 18 /min, BP - 127/78 mm(hg), O2 Sat - 97 %, Pain - 3, and Fatigue - 7. Performance Status: 0 - Fully active, able to carry on all predisease activities without restrictions. (ECOG) Constitutional Alert, cooperative, oriented. Mood and affect appropriate. Appears close to chronological age. Well nourished. Well developed. Head Normocephalic; no scars. Respiratory Lungs are clear to auscultation without rhonchi or wheezing. Cardiovascular Regular rate and rhythm of heart without murmurs, gallops or rubs. Abdomen Non-tender, non-distended, no masses, ascites or hepatosplenomegaly. Good bowel sounds. No guarding or rebound tenderness. Extremities No visible deformities, no cyanosis, clubbing or edema. Pulses 3+ and equal bilaterally. Musculoskeletal No tenderness or swelling, normal range of motion without obvious weakness. Psychiatric Alert and oriented times three. Coherent speech. Verbalizes understanding of our discussions today. Laboratory: Test performed on Jun 17, 2021 13:15 Sodium 138 mmol/L Potassium 3.4 mmol/L Chloride 98 mmol/L CO2 26 mmol/L Anion Gap 17.4 BUN 11 mg/dL Creatinine 0.7 mg/dL Cr Clearance (Est) 86.8900 mL/min eGFR 83.5 mL/min Glucose 99 mg/dL Osmolality - Calculated 285 mOsm/kg Calcium 10.5 mg/dL Protein, Total 8.8 g/dL Albumin 4.5 g/dL Globulin 4.3 g/dL Bilirubin, Total 0.3 mg/dL ALT (SGPT) 17 U/L AST (SGOT) 21 U/L Alkaline Phosphatase 90 IU/L ESR (Sed Rate) 41 mm/hr WBC 6.5 10 3/uL RBC 4.53 10 6/uL HGB 13.7 g/dL HCT 41.3 % MCV 91.2 fl MCH 30.2 pg MCHC 33.2 g/dL RDW 13.2 % Platelet Count 430 10 3/cmm MPV 9.2 fL Neutrophils 4.60 10 3/uL Lymphocytes 1.3 10 3/uL Monocytes 0.4 10 3/uL Eosinophils 0.1 10 3/uL Basophils 0.1 10 3/uL Neutrophil % 70.4 % Lymphocyte % 20.6 % Monocyte % 5.7 % Eosinophil % 2.0 % Basophils % 0.8 % NRBC % 0 % Impression: 1. Mild thrombocytosis, presumed to be reactive. 2. COPD. 3. Pulmonary fibrosis. 4. Asbestosis. 5. Hypertension. 6. Hyperlipidemia. 7. Type 2 diabetes, diet controlled. 8. GERD and history of Mclaughlin's esophagus. 9. Chronic abdominal pain. 10. Osteoporosis. 11. B12 deficiency. 12. PTSD with chronic anxiety and depression. Plan: Patient with persistent mild thrombocytosis. Her platelet count is 430,000 today. Her sed rate is elevated at 41. We will continue to monitor. She will be scheduled for a follow-up visit with repeat labs in 4 months. The generalized body aches that she was complaining of are now resolved. Having pain in the right upper quadrant of her abdomen. He goes in the pain is not severe. We will monitor it for now. Signed By: Cassi Maher NEvangelina. <<Signature on File>>
== END 2021-06-17 12:43 | disposition home or self-care (01) ==
LOC: ONCMED 12:47
PROVIDERS: PCP Nurse Practitioner; Visit Provider Nurse Practitioner Family
DX: D75.838 Other thrombocytosis (principal); J44.9 Chronic obstructive pulmonary disease, unspecified; I10 Essential (primary) hypertension; E78.5 Hyperlipidemia, unspecified; E11.9 Type 2 diabetes mellitus without complications; K21.9 Gastro-esophageal reflux disease without esophagitis; E53.8 Deficiency of other specified B group vitamins; F43.10 Post-traumatic stress disorder, unspecified; Z79.899 Other long term (current) drug therapy
CPT/HCPCS: 36415; 80053; 85025; 85651; 86140; 99214

== ENCOUNTER → 2021-06-18 09:45 | Outpatient (BNVA) | payer OTHER, SELFPAY | PROVIDERS: PCP Nurse Practitioner; Referring Provider Nurse Practitioner; Visit Provider Surgery | DX: R10.9 Unspecified abdominal pain (principal) | CPT/HCPCS: 99203 ==

== ENCOUNTER 2021-06-20 08:23 | Outpatient (CLI) | payer OTHER, SELFPAY | END 2021-06-20 08:24 | disposition home or self-care (01) | PROVIDERS: PCP Nurse Practitioner; Visit Provider Surgery | DX: R10.9 Unspecified abdominal pain (principal) | CPT/HCPCS: 83630; 87177; 87209; 87493; 87506 ==

== ENCOUNTER 2021-07-08 07:38 | Outpatient (CLI) | payer OTHER, SELFPAY ==
--- NOTE | 2021-07-08 07:46 | FL_ITS ---
WS: [id number] BARIUM ENEMA WITH AIR. HISTORY: UNSPECIFIED ABDOMINAL PAIN, RIGHT abdominal pain. COMPARISON: None available. FLUOROSCOPY TIME: 4min [id number] # of spot films: 28 Barium is instilled via gravity by rectal tube. Good distention of the colon with barium contrast and air. There are no high-grade strictures. Within the ascending colon there is mucosal irregularity al sean the lateral colonic wall. This defect extends over a length of approximately 1 vertebral body. Almanzar spicious for neoplasm. This does not distend well during this examination and seen best on the obliqu e images. No additional abnormalities. The appendix does not distend. There is reflux of contrast int o the distal small bowel. FL/FL barium enema w air* [id number] IMPRESSION: 1. Focal mucosal irregularity and defect suspicious for neoplasm involving the ascending colon. Recommend follow-up colonoscopy. 2. Otherwise no additional abnormalities or persistent defects.
== END 2021-07-08 07:39 | disposition home or self-care (01) ==
LOC: RAD 07:39
PROVIDERS: PCP Nurse Practitioner; Visit Provider Surgery
DX: R10.9 Unspecified abdominal pain (principal)
CPT/HCPCS: 74280

== ENCOUNTER 2021-08-28 05:46 | Day surgery (SDC) | payer MEDICARE, OTHER, SELFPAY ==
[2021-08-27 07:57] VITALS: BMI 23.7
[2021-08-28 06:08] VITALS: BP 145/95; PULSE 90; RESP 20; TEMP 36.2; O2SAT 98
[2021-08-28] MEDS: sodium chloride 0.9% 1,000 ML 30 ML IV (06:14)
--- NOTE | 2021-08-28 06:19 | W.PM.OPSFHP ---
Same Day Surgery H&P Indication for Procedure/HPI DATE OF PROCEDURE: August 28, 2021 CHIEF COMPLAINT/INDICATIONFOR SURGICAL PROCEDURE: Abdominal pain PREOP DIAGNOSIS: Abdominal pain PLANNED PROCEDURE: Operation Date: 08/28/21 07:00 Proposed Procedures p EGD 40932/r10.9(Not Applicable) - Pieter Ruggiero MD s Colonoscopy 33998(Not Applicable) - Pieter Ruggiero MD 06/18/2021 This is a pleasant 65 years old female patient presents with history of abdominal pain particularly in the right upper quadrant patient reports no history of bleeding per rectum or colon cancer but she does report nausea and vomiting and she has been having diarrhea all the time.? The pain is more dull and referred to the right lower quadrant.? She has been having pain per her description for the past 15 years.? She does have interstitial pulmonary fibrosis and has been on treatment in the form of OFEV and patient reports that does increase the risk of perforation.? Also reports history of gallbladder surgery. Further research of patient's medication does state that the most common side effects associated or; diarrhea, nausea, stomach pain, vomiting, liver problems, decreased appetite, headache, weight loss, and high blood pressure.? In addition to intense abdominal pain. Patient reports that she had 4 colonoscopies and all were normal. 08/28/2021 Patient comes today for diagnostic EGD and colonoscopy, a barium enema was obtained per my request that did show Barium is instilled via gravity by rectal tube. Good distention of the colon with barium contrast and air. There are no high-grade strictures. Within the ascending colon there is mucosal irregularity along the lateral colonic wall. This defect extends over a length of approximately 1 vertebral body. Suspicious for neoplasm. This does not distend well during this examination and seen best on the oblique images. No additional abnormalities. The appendix does not distend. There is reflux of contrast into the distal small bowel. FL/FL barium enema w air* [id number] IMPRESSION: ? 1.? Focal mucosal irregularity and defect suspicious for neoplasm involving the ascending colon. Recommend follow-up colonoscopy. 2.? Otherwise no additional abnormalities or persistent defects. ROS All systems have been reviewed negative except as for the above or per problem list. Medications/Allergies* Home Medications Medication Instructions Recorded Confirmed Type albuterol sulfate 90 mcg/actuation 1 inh INHALATION BID 04/05/19 08/27/21 History breath activated powder inhaler amlodipine 5 mg tablet 5 mg PO QDAY 04/05/19 08/27/21 History hydrochlorothiazide 25 mg tablet 25 mg PO QAM 04/05/19 08/27/21 History omeprazole 20 mg capsule,delayed 20 mg PO QDAY 04/05/19 08/27/21 History release albuterol sulfate 2.5 mg INHALATION Q6H PRN ml 09/18/20 08/27/21 History buspirone 10 mg tablet 10 mg PO TID tab 09/18/20 08/27/21 History cholecalciferol (vitamin D3) 50 2,000 unit PO DAILY tab 09/18/20 08/27/21 History mcg (2,000 unit) tablet cyanocobalamin (vitamin B-12) 1,000 mcg IM Q30D ml 09/18/20 08/27/21 History 1,000 mcg/mL injection solution fluoxetine 20 mg capsule 40 mg PO QDAY cap 09/18/20 08/27/21 History gemfibrozil 600 mg tablet 600 mg PO BID tab 09/18/20 08/27/21 History nintedanib 150 mg capsule 150 mg PO Q12H cap 09/18/20 08/27/21 History potassium chloride 20 mEq 20 meq PO DAILY tab 09/18/20 08/27/21 History tablet,extended release(part/cryst) trazodone 100 mg tablet 50 mg PO DAILY 09/18/20 08/27/21 History albuterol sulfate 90 mcg/actuation 2 puff INHALATION QID PRN 08/27/21 08/27/21 History aerosol inhaler (ProAir HFA) carboxymethylcellulose sodium 0.5 2 drp OPHTHALMIC (EYE) BID 08/27/21 08/27/21 History % eye drops (Refresh Tears) tiotropium bromide 2.5 1 puff INHALATION DAILY 08/27/21 08/27/21 History mcg/actuation mist for inhalation (Spiriva Respimat) Allergies/Adverse Reactions Allergy/AdvReac Type Severity Reaction Status Date / Time oxycodone [From Percocet] Allergy itching Verified 08/28/21 06:20 atorvastatin AdvReac Unknown Muscle Verified 08/28/21 06:20 aches levofloxacin [From Levaquin] AdvReac joint and Verified 08/28/21 06:20 ligament pain sumatriptan [From Imitrex] AdvReac angina Verified 08/28/21 06:20 Current Medications: Generic Name Dose Route Start Last Admin Trade Name Freq PRN Reason Stop Dose Admin Sodium Chloride 1,000 mls @ 30 mls/hr 08/28/21 06:00 08/28/21 06:14 Sodium Chloride 0.9% IV 08/29/21 05:59 30 mls/hr .Q24H ARIANA Administration Pertinent History/Comorbid Conditions* Medical History (Updated 06/18/21 @ 16:26 by Pieter Ruggiero MD) Chronic hypertension Diagnosed in 1999 and is controlled with medication managed by [facility]. she does see Dr. Marrero COPD (chronic obstructive pulmonary disease) Diagnosed in her 50s and controlled with inhalers managed by the [facility]. Does not have a breeder service technician Mixed hyperlipidemia Diagnosed in her late 50s and is on medication managed by the [facility]. No pertinent past medical history Denies asthma, seizures, DVT/PE PCP: MIGUEL Card[facility] ([facility]) PTSD (post-traumatic stress disorder) Takes antianxiety antidepressive meds for this managed by the [facility]. Pulmonary fibrosis Diagnosed in 2019 and is under the care of breeder service technician Dr. Claros in [place] and states that they are working on getting her a lung transplant and is currently on medication for this. Type 2 diabetes mellitus Was only ever diet-controlled and she states that her last hemoglobin C was normal Surgical History (Updated 12/02/20 @ 12:07 by Za Aguirre MD) Hx of cataract extraction May 2020---bilateral Hx of vaginal surgery Operative reports were requested and received from Dr. Elizalde. 06/20/2012-----> patient underwent an anterior and posterior colporrhaphy for cystocele and rectocele, manuelito plication. On exam in the clinic she had been noted to have a grade 3 bladder prolapse with MARITO prior to surgery. S/P arthroscopic surgery of right knee Arthroscopic right knee surgery for torn cartilage in 1977, [place] S/P cholecystectomy Laparoscopic cholecystectomy in 2012 S/P hysterectomy LAVH, BSO, Laparoscopic uterosacral ligament suspension with laparoscopic moschcowitz culdoplasty (enterocele repair) on 11/10/[address] He and Dr. Han. Pathology showed benign cervix, endometrium, myometrium and bilateral tubes and ovaries. S/P lumpectomy, left breast x2- Performed in [place] S/P tonsillectomy Done at age 43 S/P tubal ligation Done through umbilicus. Status post hysteroscopy 1998- with endometrial ablation, Performed in [place] for menorrhagia Status post surgery Skin cancer removal: 2002- removed from face. Performed in [place] 2014- Removed from arm by Dr Harrison in [place], [place] Family History (Updated 12/02/20 @ 08:30 by Dominga Wells RN) Diabetes Grandmother maternal CAD (coronary artery disease) Mother Heart disease Father Hyperlipidemia Mother Breast cancer Sister diagnosed at age 40 Lung disease Father Hypertension Mother Father Denies family history of Colon cancer Ovarian cancer Clotting disorder Chronic kidney disease (CKD) Suicide Anesthesia complication Bleeding disorder Uterine cancer Thyroid condition Stroke Social History Smoking and tobacco status: former smoker Alcohol intake: never Pertinent Exam Findings alert, oriented x 3, regular rate & rhythm and procedure specific exam findings (Abdominal examination nontender nondistended soft) Recommendations Surgery/Procedure today (Diagnostic EGD and colonoscopy with possible biopsy) 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
--- NOTE | 2021-08-28 06:41 | ANES.PREANE2 ---
Pre-Anesthetic Assessment Height/Weight: Height 1.73 m Weight 70.76 kg Temp Pulse Resp BP Pulse Ox 97.1 F L 90 20 H 145/95 98 08/28/21 06:08 08/28/21 06:08 08/28/21 06:08 08/28/21 06:08 08/28/21 06:08 Preop Diagnosis: Abdominal pain Operation Date: 08/28/21 07:00 Proposed Procedures p EGD 96670/r10.9(Not Applicable) - Pieter Ruggiero MD s Colonoscopy 46682(Not Applicable) - Pieter Ruggiero MD Familial anesthetic complications: none Was Beta Warren taken within 24 hours: N/A Was Clonidine taken within 24 hours: N/A Last intake: Intake Last Liquid Date 08/27/21 Last Liquid Time 20:00 Last Solid Date 08/26/21 Last Solid Time 18:00 Social No alcohol and No tobacco Exam alert, oriented x 3, clear to auscultation bilaterally and regular rate & rhythm Airway Submandibular: within normal limits Cervical ROM: within normal limits Mallampati: Class II Comments: Comments: partials Pulmonary Chronic Obstructive Pulmonary Disease Pulmonary fibrosis CV/HEM Coronary Artery Disease and Hypertension None reported Hepatic None reported GI Gastroesophageal Reflux Disease Gastritis Metabolic None reported Musc/skel Osteoarthritis/DJD Neuropsych PTSD Anesthetic Plan ASA status: 3 (66 year old female with hx of pulmonary fibrosis, COPD, htn ) Anesthesia: Anesthesia Evaluation and General Other: I discussed with the patient risks, goals, and benefits of MAC and general anesthesia. We discussed spectrum of MAC anesthesia including conversion to general as well as possibility of recall of intraoperative stimuli including discomfort/pain. Patient agrees to proceed with MAC. Risk of > 500 ml blood loss (7ml/kg in children): No Medications/Allergies Home Medications Medication Instructions Recorded Confirmed Last Taken Type albuterol sulfate 90 mcg/actuation 1 inh INHALATION BID 04/05/19 08/27/21 08/27/21 History breath activated powder inhaler amlodipine 5 mg tablet 5 mg PO QDAY 04/05/19 08/27/21 08/27/21 History hydrochlorothiazide 25 mg tablet 25 mg PO QAM 04/05/19 08/27/21 08/27/21 History albuterol sulfate 2.5 mg INHALATION Q6H PRN ml 09/18/20 08/27/21 08/27/21 History buspirone 10 mg tablet 10 mg PO TID tab 09/18/20 08/27/21 08/27/21 History cholecalciferol (vitamin D3) 50 2,000 unit PO DAILY tab 09/18/20 08/27/21 08/27/21 History mcg (2,000 unit) tablet cyanocobalamin (vitamin B-12) 1,000 mcg IM Q30D ml 09/18/20 08/27/21 08/06/21 History 1,000 mcg/mL injection solution fluoxetine 20 mg capsule 40 mg PO QDAY cap 09/18/20 08/27/21 08/27/21 History gemfibrozil 600 mg tablet 600 mg PO BID tab 09/18/20 08/27/21 08/27/21 History nintedanib 150 mg capsule 150 mg PO Q12H cap 09/18/20 08/27/21 08/27/21 History potassium chloride 20 mEq 20 meq PO DAILY tab 09/18/20 08/27/21 08/27/21 History tablet,extended release(part/cryst) trazodone 100 mg tablet 50 mg PO DAILY 09/18/20 08/27/21 08/27/21 History albuterol sulfate 90 mcg/actuation 2 puff INHALATION QID PRN 08/27/21 08/27/21 08/27/21 History aerosol inhaler (ProAir HFA) carboxymethylcellulose sodium 0.5 2 drp OPHTHALMIC (EYE) BID 08/27/21 08/27/21 08/27/21 History % eye drops (Refresh Tears) tiotropium bromide 2.5 1 puff INHALATION DAILY 08/27/21 08/27/21 08/27/21 History mcg/actuation mist for inhalation (Spiriva Respimat) pantoprazole 40 mg tablet,delayed 40 mg PO DAILY 30 Days #30 tab 08/28/21 Unknown Rx release (Protonix) Allergies Allergy/AdvReac Type Severity Reaction Status Date / Time oxycodone [From Percocet] Allergy itching Verified 08/28/21 06:20 atorvastatin AdvReac Unknown Muscle Verified 08/28/21 06:20 aches levofloxacin [From Levaquin] AdvReac joint and Verified 08/28/21 06:20 ligament pain sumatriptan [From Imitrex] AdvReac angina Verified 08/28/21 06:20 Current Medications Generic Name Dose Route Start Last Admin Trade Name Freq PRN Reason Stop Dose Admin Sodium Chloride 1,000 mls @ 30 mls/hr 08/28/21 06:00 08/28/21 06:14 Sodium Chloride 0.9% IV 08/29/21 05:59 30 mls/hr .Q24H ARIANA Administration PFSH Anesthesia Medical History Chronic hypertension Diagnosed in 1999 and is controlled with medication managed by [facility]. she does see Dr. Marrero COPD (chronic obstructive pulmonary disease) Diagnosed in her 50s and controlled with inhalers managed by the [facility]. Does not have a predatory game hunter Mixed hyperlipidemia Diagnosed in her late 50s and is on medication managed by [facility]. No pertinent past medical history Denies asthma, seizures, DVT/PE PCP: MIGUEL Cardozo ([facility]) PTSD (post-traumatic stress disorder) Takes antianxiety antidepressive meds for this managed by the [facility]. Pulmonary fibrosis Diagnosed in 2019 and is under the care of predatory game hunter Dr. Claros in [place] and states that they are working on getting her a lung transplant and is currently on medication for this. Type 2 diabetes mellitus Was only ever diet-controlled and she states that her last hemoglobin C was normal Surgical History Hx of cataract extraction May 2020---bilateral Hx of vaginal surgery Operative reports were requested and received from Dr. Elizalde. 06/20/2012-----> patient underwent an anterior and posterior colporrhaphy for cystocele and rectocele, manuelito plication. On exam in the clinic she had been noted to have a grade 3 bladder prolapse with MARITO prior to surgery. S/P arthroscopic surgery of right knee Arthroscopic right knee surgery for torn cartilage in 1977, [place] S/P cholecystectomy Laparoscopic cholecystectomy in 2012 S/P hysterectomy LAVH, BSO, Laparoscopic uterosacral ligament suspension with laparoscopic moschcowitz culdoplasty (enterocele repair) on 11/10/[address] He and Dr[address] Han. Pathology showed benign cervix, endometrium, myometrium and bilateral tubes and ovaries. S/P lumpectomy, left breast x2- Performed in [place] S/P tonsillectomy Done at age 43 S/P tubal ligation Done through umbilicus. Status post hysteroscopy 1998- with endometrial ablation, Performed in [place] for menorrhagia Status post surgery Skin cancer removal: 2002- removed from face. Performed in [place] 2014- Removed from arm by Dr Harrison in [place], [place] Family History Sister Breast cancer diagnosed at age 40 Mother Hyperlipidemia Hypertension CAD (coronary artery disease) Father Heart disease Hypertension Lung disease Grandmother Diabetes maternal Denies family history of Colon cancer Ovarian cancer Clotting disorder Chronic kidney disease (CKD) Suicide Anesthesia complication Bleeding disorder Uterine cancer Thyroid condition Stroke Social History Smoking and tobacco status: former smoker Alcohol intake: never Data Anesthesia Cardiac Studies: Echocardiogram 10/31/20 Sestamibi Stress Test (Cardiology) 10/31/20
[2021-08-28 07:28] VITALS: BP 100/70; PULSE 63; RESP 16; TEMP 36.4; O2SAT 95
[2021-08-28 07:33] VITALS: BP 144/84; PULSE 63; RESP 18; O2SAT 93
[2021-08-28 07:40] VITALS: BP 127/82; PULSE 61; RESP 18; TEMP 36.1; O2SAT 95
--- NOTE | 2021-08-28 10:11 | ANE.PACU2 ---
Inpatient post-anesthesia follow up: Airway intact: Yes Vital signs: Temperature 97 F Pulse Rate 61 Respiratory Rate 18 Blood Pressure 127/82 Pulse Oximetry 95 Oxygen Delivery Me thod Room Air Oxygen Flow Rate Fraction of Inspir ed Oxygen Hydration adequate: Yes Nausea and vomiting: No Pain level: 1 Mental status: Baseline
== END 2021-08-28 07:58 | disposition home or self-care (01) ==
PROVIDERS: PCP Nurse Practitioner; Visit Provider Surgery
PROC: 0DJ08ZZ Inspection of Upper Intestinal Tract, Via Natural or Artificial Opening Endoscopic (ICD-10-PCS; CPT 43235; principal; 2021-08-28 07:00)
PROC: 0DJD8ZZ Inspection of Lower Intestinal Tract, Via Natural or Artificial Opening Endoscopic (ICD-10-PCS; CPT 45378; 2021-08-28 07:00)
DX: R10.9 Unspecified abdominal pain (principal); R93.3 Abnormal findings on diagnostic imaging of other parts of digestive tract; K21.00 Gastro-esophageal reflux disease with esophagitis, without bleeding; K44.9 Diaphragmatic hernia without obstruction or gangrene; K29.50 Unspecified chronic gastritis without bleeding; J44.9 Chronic obstructive pulmonary disease, unspecified; I25.10 Atherosclerotic heart disease of native coronary artery without angina pectoris; I10 Essential (primary) hypertension; E78.2 Mixed hyperlipidemia; E11.9 Type 2 diabetes mellitus without complications; Z87.891 Personal history of nicotine dependence
CPT/HCPCS: 43239; 45378; 88305; J2704; J7030

== ENCOUNTER → 2021-09-09 09:43 | Outpatient (BNVA) | payer OTHER, SELFPAY | PROVIDERS: PCP Nurse Practitioner; Visit Provider Internal Medicine Cardiovascular Disease | DX: I25.10 Atherosclerotic heart disease of native coronary artery without angina pectoris (principal); J84.10 Pulmonary fibrosis, unspecified; Z87.891 Personal history of nicotine dependence; E78.5 Hyperlipidemia, unspecified; I10 Essential (primary) hypertension | CPT/HCPCS: 99214 ==

== ENCOUNTER → 2021-09-10 09:08 | Outpatient (BNVA) | payer OTHER, MEDICARE, SELFPAY | PROVIDERS: PCP Nurse Practitioner; Visit Provider Surgery | DX: K20.90 Esophagitis, unspecified without bleeding (principal); K29.70 Gastritis, unspecified, without bleeding; T88.7XXA Unspecified adverse effect of drug or medicament, initial encounter; X58.XXXA Exposure to other specified factors, initial encounter | CPT/HCPCS: 99213 ==

== ENCOUNTER 2021-11-24 12:43 | Outpatient (CLI) | payer OTHER, MEDICARE, SELFPAY ==
--- NOTE | 2021-11-24 12:48 | MM_ITS ---
WS: [id number] BILATERAL 3D TOMOSYNTHESIS DIGITAL SCREENING MAMMOGRAPHY WITH CAD CLINICAL INFORMATION: SCREEN HISTORY: Screening mammogram. LEFT breast pain and soreness. COMPARISON: October 09, 2020 TECHNIQUE: Bilateral CC and MLO views. FINDINGS: The breasts are composed of heterogeneous fibroglandular density tissue, which can limit the detectio n of small underlying mass lesions. Incidental punctate calcifications. Vascular calcification. No ruby spicious mass, asymmetry, calcifications, or architectural distortion. No evidence of malignancy. MM/[place] [id number] IMPRESSION: BI-RADS: 2-Benign FOLLOW UP: 1 Year Follow-up Recommend return to annual screening mammography.
== END 2021-11-24 12:44 | disposition home or self-care (01) ==
LOC: RAD 12:45
PROVIDERS: PCP Nurse Practitioner; Visit Provider Nurse Practitioner
DX: Z12.31 Encounter for screening mammogram for malignant neoplasm of breast (principal)
CPT/HCPCS: 77063; 77067

== ENCOUNTER 2022-02-09 09:19 | Oncology outpatient (recurring) (ONCR) | payer OTHER, MEDICARE, SELFPAY ==
[2022-02-09 10:03] LABS: Basophils # 0.1 10^3/uL (0.0-0.1); Basophils % 0.9 %; Eosinophils # 0.1 10^3/uL (0.0-0.8); Eosinophils % 1.9 %; Hematocrit 40.2 % (37.0-47.0); Lymphocytes # 1.4 10^3/uL (0.8-4.8); Lymphocytes % 24.1 %; Mean Corpuscular HGB Conc 32.3 g/dL (30.0-36.0); Mean Corpuscular Hemoglobin 30.2 pg (28.0-34.0); Mean Corpuscular Volume 93.5 fl (81-99); Mean Platelet Volume 9.1 fL (7.4-10.4); Monocytes # 0.3 10^3/uL (0.2-0.9); Monocytes % 4.8 %; Neutrophils # 3.97 10^3/uL (1.8-7.7); Neutrophils % 67.8 %; Nucleated Red Blood Cells % 0 %; Platelet Count 403 10^3/cmm (130-400); Red Cell Distribution Width 14.6 % (12.1-15.1); White Blood Count 5.9 10^3/uL (4.0-10.0)
[2022-02-09 10:09] LABS: Erythrocyte Sedimentation Rate 22 mm/hr (0-15)
[2022-02-09 10:26] LABS: Alanine Aminotransferase 25 U/L (0-33); Albumin Level 3.8 g/dL (3.5-5.2); Alkaline Phosphatase 114 U/L (35-105); Anion Gap 13.3 (5-19); Aspartate Amino Transferase 25 U/L (0-32); Blood Urea Nitrogen 9 mg/dL (8-23); Calcium 9.9 mg/dL (8.5-10.5); Carbon Dioxide 27 mmol/L (22-29); Chloride 96 mmol/L (98-107); Ferritin 96 ng/mL (15-150); Globulin 4.3 g/dL (1.3-4.6); Glomerular Filtration Rate 83.2 mL/min (90-130); Glucose 145 mg/dL (65-115); Iron 75 ug/dL (37-145); Lactate Dehydrogenase 207 U/L (135-214); Osmolality Calculated 277 mOsm/kg (285-295); Percent Saturation 26.5 % (20-50); Potassium 3.3 mmol/L (3.5-5.1); Sodium 133 mmol/L (136-145); Total Bilirubin 0.3 mg/dL (0.15-1.2); Total Iron Binding Capacity 283 mcg/dl; Total Protein 8.1 g/dL (6.6-8.7); Unsaturated Iron Binding 208 ug/dL (112-347)
== END 2022-03-07 23:59 | disposition home or self-care (01) ==
PROVIDERS: PCP Nurse Practitioner; Visit Provider Internal Medicine Medical Oncology
DX: D75.839 Thrombocytosis, unspecified (principal); R79.89 Other specified abnormal findings of blood chemistry
CPT/HCPCS: 80053; 82728; 83540; 83550; 83615; 85025; 85651; 99213

== ENCOUNTER → 2022-03-16 09:18 | Outpatient (BNVA) | payer OTHER, SELFPAY | PROVIDERS: PCP Nurse Practitioner; Visit Provider Internal Medicine Cardiovascular Disease | DX: I25.10 Atherosclerotic heart disease of native coronary artery without angina pectoris (principal); J84.10 Pulmonary fibrosis, unspecified; E78.5 Hyperlipidemia, unspecified; I10 Essential (primary) hypertension; D75.839 Thrombocytosis, unspecified; Z87.891 Personal history of nicotine dependence | CPT/HCPCS: 99214 ==

== ENCOUNTER → 2023-01-04 09:01 | Outpatient (BNVA) | payer OTHER, SELFPAY | PROVIDERS: PCP Nurse Practitioner; Visit Provider Internal Medicine | DX: E27.8 Other specified disorders of adrenal gland (principal); I10 Essential (primary) hypertension | CPT/HCPCS: 36415; 80053; 82088; 84244; 99204 ==

== ENCOUNTER 2023-01-05 13:42 | Outpatient (CLI) | payer OTHER, SELFPAY ==
--- NOTE | 2023-01-05 13:57 | MM_ITS ---
WS: [id number] BILATERAL 3D TOMOSYNTHESIS DIGITAL SCREENING MAMMOGRAPHY WITH CAD CLINICAL INFORMATION: SCREENING HISTORY: Screening mammogram. No current complaints. COMPARISON: 2021 TECHNIQUE: Bilateral CC and MLO views. FINDINGS: The breasts are composed of heterogeneous fibroglandular density tissue, which can limit the detectio n of small underlying mass lesions. No suspicious mass, asymmetry, calcifications, or architectural d istortion. No evidence of malignancy. Incidental punctate and lucent centered calcifications. IMPRESSION: MM/[place] [id number] BI-RADS: 2-Benign FOLLOW UP: 1 Year Follow-up Recommend return to annual screening mammography.
== END 2023-01-05 13:43 | disposition home or self-care (01) ==
LOC: RAD 13:42
PROVIDERS: PCP Nurse Practitioner; Visit Provider Nurse Practitioner
DX: Z12.31 Encounter for screening mammogram for malignant neoplasm of breast (principal)
CPT/HCPCS: 77063; 77067; 99204

== ENCOUNTER 2023-01-05 13:47 | Outpatient (CLI) | payer OTHER, SELFPAY ==
[2023-01-05 14:18] LABS: Urine Creatinine 69 mg/dL (28-217)
[2023-01-05 14:31] LABS: Total Volume Urine 1800 ml
[2023-01-12 07:10] LABS: Calculated Total (E+NE) 37 mcg/24 h (26-121); Metanephrines Total Urine 1800 mL; Urine Metanephrines Total 515 mcg/24 h (224-832)
[2023-01-12 15:14] LABS: Free Cortisol Urine 13.1 mcg/24 h (4.0-50.0); Total Urine 1800 mL; Urine Creatinine 1.14 g/24 h (0.50-2.15)
== END 2023-01-05 13:48 | disposition home or self-care (01) ==
LOC: LAB 13:48
PROVIDERS: PCP Nurse Practitioner; Visit Provider Internal Medicine
DX: E27.8 Other specified disorders of adrenal gland (principal)
CPT/HCPCS: 82384; 82530; 82570; 83835

== ENCOUNTER → 2023-03-15 09:50 | Outpatient (BNVA) | payer OTHER, SELFPAY | PROVIDERS: PCP Nurse Practitioner; Visit Provider Internal Medicine Cardiovascular Disease | DX: I25.10 Atherosclerotic heart disease of native coronary artery without angina pectoris (principal); I10 Essential (primary) hypertension; E78.5 Hyperlipidemia, unspecified; J84.10 Pulmonary fibrosis, unspecified; G47.33 Obstructive sleep apnea (adult) (pediatric); Z99.89 Dependence on other enabling machines and devices; Z87.891 Personal history of nicotine dependence | CPT/HCPCS: 99214 ==

== ENCOUNTER 2023-11-15 12:39 | Outpatient (CLI) | payer OTHER, SELFPAY ==
--- NOTE | 2023-11-15 12:54 | MM_ITS ---
WS: [id number] DIAGNOSTIC BILATERAL DIGITAL BREAST TOMOSYNTHESIS MAMMOGRAPHY WITH CAD LEFT breast ultrasound, limited HISTORY: LUMP LT BREAST COMPARISON: 01/05/2023, 11/24/2021, 07/22/2016 and 09/06/2019 TECHNIQUE: Bilateral craniocaudad, mediolateral oblique, and mediolateral views are submitted with to mosynthesis and SM. Spot compression LEFT CC and MLO. Computer aided detection utilized. Breast composition: The breasts are extremely dense, which lowers the sensitivity of mammography. Dense fibroglandular tissue in the upper outer quadrants of each breast. Triangular marker is placed on the 12:00 axis of the LEFT breast. There is a partially obscured asymmetry measuring 7 mm which co uld potentially be a mass at 12:00 LEFT breast. Benign calcifications in each breast. LEFT breast ultrasound, limited. Very dense fibroglandular tissue in the upper outer quadrant of the LEFT breast greatest at 12:00. Th ere is no discrete mass and no shadowing. MM/[place] [id number] IMPRESSION: BI-RADS: 2 - Benign FOLLOW UP: 1 Year Follow-up
== END 2023-11-15 12:40 | disposition home or self-care (01) ==
PROVIDERS: PCP Nurse Practitioner; Visit Provider Nurse Practitioner
DX: Z12.31 Encounter for screening mammogram for malignant neoplasm of breast (principal); R92.333 Mammographic heterogeneous density, bilateral breasts; N64.89 Other specified disorders of breast; R92.1 Mammographic calcification found on diagnostic imaging of breast
CPT/HCPCS: 76642; 77062; G0279

== ENCOUNTER → 2023-11-15 14:26 | Outpatient (BNVA) | payer MEDICARE, OTHER, SELFPAY | PROVIDERS: PCP Nurse Practitioner; Referring Provider Family Medicine; Visit Provider Nurse Practitioner Family | DX: D22.111 Melanocytic nevi of right upper eyelid, including canthus (principal); L57.8 Other skin changes due to chronic exposure to nonionizing radiation; L82.1 Other seborrheic keratosis; L57.0 Actinic keratosis; D48.5 Neoplasm of uncertain behavior of skin; L30.9 Dermatitis, unspecified; L72.0 Epidermal cyst; Z85.828 Personal history of other malignant neoplasm of skin | CPT/HCPCS: 11104; 17000; 99203 ==

== ENCOUNTER → 2023-11-25 10:38 | Outpatient (BNVA) | payer MEDICARE, OTHER, SELFPAY | PROVIDERS: PCP Nurse Practitioner; Visit Provider Nurse Practitioner Family | DX: L57.8 Other skin changes due to chronic exposure to nonionizing radiation (principal); Z85.828 Personal history of other malignant neoplasm of skin; L92.0 Granuloma annulare | CPT/HCPCS: 99213 ==

== ENCOUNTER 2023-12-20 08:19 | Outpatient (CLI) | payer OTHER, SELFPAY ==
--- NOTE | 2023-12-20 08:21 | USCV_ITS ---
Tawnya Reed Age: 68 Gender: F : 1955 Exam Date: 12/20/2023 08:32 Ordering Phys: Sawyer Warren Technologist: CT Exam Location: [facility] [place] Indication: BP: 128 / 84 HR: 54 Rhythm: Sinus Technical Quality: Adequate MEASUREMENTS (Male / Female) Normal Values 2D ECHO LVOT Diameter 2.0 cm LV Ejection Fraction MOD 4C 68.4 % LV Ejection Fraction MOD 2C 69.1 % LV Ejection Fraction 2C AL 72.1 % LA Diameter 3.8 cm RA Systolic Volume 4C AL 36.4 ml RA Systolic Volume 4C MOD 37.0 ml LA Sys Volume AL 55.2 cm cubed LA Sys Volume Index AL 30.4 cm cubed/m squared Aorta at Sinotubular Diameter 2.3 cm IVC Diameter 1.9 cm M-MODE LA Ao Ratio MM 1.4 AV Cusp Separation MM 1.7 cm DOPPLER AV Peak Velocity 150.0 cm/s LVOT Peak Velocity 149.0 cm/s AV Area Cont Eq vti 3.4 cm squared AV Area Cont Eq pk 3.1 cm squared MV Peak Velocity 102.0 cm/s MV Area PHT 3.9 cm squared Mitral E to A Ratio 0.9 TR Peak Velocity 256.0 cm/s TR Peak Gradient 26.2 mmHg TV Peak E Velocity 63.0 cm/s Right Atrial Pressure 3.0 mmHg Pulmonary Artery Systolic Pressu 29.2 mmHg PV Peak Velocity 109.0 cm/s FINDINGS Left Ventricle Normal left ventricular size and systolic function, EF 68%. Mild left ventricular hypertrophy. No regional wall motion abnormalities. Grade I/IV diastolic dysfunction (abnormal relaxation filling pattern), normal to mildly elevated filling pressures. Right Ventricle The right ventricle is normal in size and function. Right Atrium The right atrium is normal in size. Left Atrium Thickened interatrial septum suggestive of lipomatous dystrophy Mitral Valve Trace mitral valve regurgitation. Aortic Valve No gross abnormalities noted Tricuspid Valve Trace to mild tricuspid valve regurgitation. Pulmonic Valve Pulmonic valve not well visualized. Pericardium Small echo-free space anteriorly and posteriorly suggesting pericardial effusion Aorta Normal ascending aorta dimension. IVC Inferior vena cava not visualized. CONCLUSIONS Normal left ventricular size and systolic function, EF 68%. Mild left ventricular hypertrophy. No regional wall motion abnormalities. Grade I/IV diastolic dysfunction (abnormal relaxation filling pattern), normal to mildly elevated filling pressures. 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 Trace mitral valve regurgitation. Trace to mild tricuspid valve regurgitation. Possible small pericardial effusion There are no intracardiac masses. Compared to the study from 10/31/2020, there may not be a significant change Dr Aldo Marrero MD [facility] (Electronically Signed) Final Date: 27 December 2023 09:15 S
== END 2023-12-20 08:20 | disposition home or self-care (01) ==
PROVIDERS: PCP Nurse Practitioner; Visit Provider Chiropractor
DX: I50.30 Unspecified diastolic (congestive) heart failure (principal); I25.10 Atherosclerotic heart disease of native coronary artery without angina pectoris; Q21.19 Other specified atrial septal defect
CPT/HCPCS: 93306

== ENCOUNTER 2024-01-12 14:35 | Outpatient (CLI) | payer OTHER, SELFPAY ==
--- NOTE | 2024-01-12 14:40 | CTR_ITS ---
PROCEDURE INFORMATION: Exam: CT Pelvis With Contrast, Skeleton Exam date and time: 01/12/2024 4:39 PM Age: 68 years old Clinical indication: Surgery--gb, hysterectomy; Right upper and lower quadrant pain TECHNIQUE: Imaging protocol: Computed tomography of the pelvis with contrast. Exam focused on the skeleton. Radiation optimization: All CT scans at this facility use at least one of these dose optimization techniques: automated exposure control; mA and/or kV adjustment per patient size (includes targeted exams where dose is matched to clinical indication); or iterative reconstruction. Contrast material: OMNI 350; Contrast volume: 100 ml; Contrast route: INTRAVENOUS (IV); COMPARISON: CT abdomen wo/w con [id number] 01/12/2024 4:39 PM RADIATION DOSE METRICS: Total DLP (mGy-cm): 813.42 FINDINGS: Intestine: There is mild mucosal thickening versus underdistention of the descending and rectosigmoid colon. Appendix: A normal appendix is identified. Vasculature: Multivessel atherosclerotic disease. Reproductive: The uterus is not visualized, consistent with hysterectomy. Bones/joints: There are marginal osteophyte formations across the hip joints. [id number] degenerative changes extend across the sacroiliac joints and pubic symphysis. Soft tissues: Unremarkable. CT/CT pelvis w con* [id number] IMPRESSION: Mild mucosal thickening versus underdistention of the descending and rectosigmoid colon. Please correlate clinically if there is suspicion for colitis.
--- NOTE | 2024-01-12 14:40 | CTR_ITS ---
PROCEDURE INFORMATION: Exam: CT Abdomen And Pelvis Without And With Contrast Exam date and time: 01/12/2024 4:39 PM Age: 68 years old Clinical indication: Abdominal pain; Generalized; Prior surgery; Surgery date: 6+ months; Surgery type: Surgery--gb, hysterectomy; Additional info: Right upper and lower quadrant pain TECHNIQUE: Imaging protocol: Computed tomography of the abdomen and pelvis without and with contrast. Radiation optimization: All CT scans at this facility use at least one of these dose optimization techniques: automated exposure control; mA and/or kV adjustment per patient size (includes targeted exams where dose is matched to clinical indication); or iterative reconstruction. Contrast material: OMNI 350; Contrast volume: 100 ml; Contrast route: INTRAVENOUS (IV); COMPARISON: CT pelvis w con* [id number] 01/12/2024 4:39 PM RADIATION DOSE METRICS: Total DLP (mGy-cm): 813.42 FINDINGS: Lungs: There are scattered regions of bilateral subpleural interstitial thickening, greatest at the lung bases, suggestive of pulmonary fibrosis. Small peripherally oriented bulla are present at the lung bases. Diaphragm: Small hiatal hernia. Liver: Normal. No mass. Gallbladder and biliary ducts: The gallbladder has been removed. Pancreas: Normal. No ductal dilation. Spleen: Normal. No splenomegaly. Adrenal glands: There is a 2.0 cm focal hypodense mass in the left adrenal gland, consistent in appearance and density with a benign adrenal adenoma. Kidneys and ureters: Normal. No hydronephrosis. Stomach and bowel: There is large bowel mucosal thickening Appendix: No evidence of appendicitis. Intraperitoneal space: Unremarkable. No free air. No significant fluid collection. Vasculature: Multivessel atherosclerotic disease. Lower abdominal aorta is ectatic measuring 2.4 cm in the transverse dimension. Lymph nodes: Unremarkable. No enlarged lymph nodes. Urinary bladder: Unremarkable as visualized. Reproductive: Unremarkable as visualized. Bones/joints: Unremarkable. No acute fracture. Soft tissues: Unremarkable. CT/CT abdomen wo/w con [id number] IMPRESSION: There is large bowel mucosal thickening consistent with a nonspecific colitis. COMMENTS: Consistent with the [employer]'s Incidental Findings Committee white paper (J Am Edy Radiol 2017): For any incidental adrenal lesion greater than or equal to 1 cm but less than or equal to 4 cm classified in this report as benign, likely benign, or containing fat (including classification as an adenoma or myelolipoma), no follow-up imaging is recommended per consensus recommendations based on imaging criteria. Further lab evaluation could be pursued if warranted based on clinical findings.
[2024-01-12 16:50] LABS: Blood Urea Nitrogen 6 mg/dL (8-23); Glomerular Filtration Rate 70.9 mL/min (90-130)
[2024-01-12] MEDS: iohexol 350 mg/mL 500 mL Btl (per mL) IV (16:50)
[2024-01-12] MEDS: iohexol 350 mg/mL 500 mL Btl (per mL) PO (16:50)
== END 2024-01-12 14:36 | disposition home or self-care (01) ==
LOC: RAD 14:36
PROVIDERS: PCP Nurse Practitioner; Visit Provider Nurse Practitioner
DX: M16.0 Bilateral primary osteoarthritis of hip (principal); M25.752 Osteophyte, left hip; M25.751 Osteophyte, right hip; J84.10 Pulmonary fibrosis, unspecified; K44.9 Diaphragmatic hernia without obstruction or gangrene; D35.02 Benign neoplasm of left adrenal gland; I77.811 Abdominal aortic ectasia; Z90.49 Acquired absence of other specified parts of digestive tract; Z90.710 Acquired absence of both cervix and uterus
CPT/HCPCS: 72193; 74170; 82565; 84520

== ENCOUNTER 2024-01-26 09:54 | Outpatient (CLI) | payer OTHER, SELFPAY ==
[2024-01-26 11:02] LABS: Alanine Aminotransferase 14 U/L (0-33); Albumin Level 4.2 g/dL (3.5-5.2); Alkaline Phosphatase 91 U/L (35-105); Anion Gap 16.5 (5-19); Aspartate Amino Transferase 18 U/L (0-32); Blood Urea Nitrogen 7 mg/dL (8-23); Calcium 8.8 mg/dL (8.5-10.5); Carbon Dioxide 28 mmol/L (22-29); Chloride 98 mmol/L (98-107); Glomerular Filtration Rate 82.7 mL/min (90-130); Glucose 102 mg/dL (65-115); Osmolality Calculated 286 mOsm/kg (285-295); Potassium 3.5 mmol/L (3.5-5.1); Sodium 139 mmol/L (136-145); Total Bilirubin 0.4 mg/dL (0.15-1.2); Total Protein 7.2 g/dL (6.6-8.7)
== END 2024-01-26 09:55 | disposition home or self-care (01) ==
LOC: LAB 09:55
PROVIDERS: PCP Nurse Practitioner; Visit Provider Internal Medicine
DX: E27.8 Other specified disorders of adrenal gland (principal)
CPT/HCPCS: 36415; 80053; 82088; 84244

== ENCOUNTER 2024-01-27 08:46 | Outpatient (CLI) | payer OTHER, SELFPAY ==
[2024-01-27 09:11] LABS: Total Volume Urine 1300 ml
[2024-01-27 09:17] LABS: Urine Creatinine 68 mg/dL (28-217)
== END 2024-01-27 08:47 | disposition home or self-care (01) ==
LOC: LAB 08:47
PROVIDERS: PCP Nurse Practitioner; Visit Provider Internal Medicine
DX: E27.8 Other specified disorders of adrenal gland (principal)
CPT/HCPCS: 82384; 82530; 82570

== ENCOUNTER → 2024-01-31 10:00 | Outpatient (BNVA) | payer OTHER, SELFPAY | PROVIDERS: PCP Nurse Practitioner; Visit Provider Internal Medicine | DX: E27.8 Other specified disorders of adrenal gland (principal); I10 Essential (primary) hypertension | CPT/HCPCS: 99214 ==

== ENCOUNTER → 2024-03-06 13:20 | Outpatient (BNVA) | payer OTHER, SELFPAY | PROVIDERS: PCP Nurse Practitioner; Referring Provider Nurse Practitioner; Visit Provider Student in an Organized Health Care Education/Training Program | DX: R03.0 Elevated blood-pressure reading, without diagnosis of hypertension (principal); R12 Heartburn; R19.7 Diarrhea, unspecified | CPT/HCPCS: 99204 ==

== ENCOUNTER → 2024-03-15 09:54 | Outpatient (BNVA) | payer OTHER, SELFPAY | PROVIDERS: PCP Nurse Practitioner; Visit Provider Internal Medicine Cardiovascular Disease | DX: I25.118 Atherosclerotic heart disease of native coronary artery with other forms of angina pectoris (principal); I10 Essential (primary) hypertension; E78.5 Hyperlipidemia, unspecified; J84.10 Pulmonary fibrosis, unspecified; G47.33 Obstructive sleep apnea (adult) (pediatric); Z87.891 Personal history of nicotine dependence | CPT/HCPCS: 99214 ==

== ENCOUNTER 2024-03-29 08:03 | Outpatient (CLI) | payer OTHER, SELFPAY ==
[2024-03-29 08:09] VITALS: BMI 23.8
--- NOTE | 2024-03-29 08:14 | NMCV_ITS ---
NM emilia perf SPECT r/s* [id number] Tawnya Reed Age: 68 Gender: F : 1955 Exam Date: 03/29/2024 08:14 Ordering Phys: Aldo Marrero MD ([email or web address]) Technologist: ALEE Mccann Exam Location: [facility] Indications: CP STRESS TEST Please see separate stress test report in [facility] for full findings IMAGE PROTOCOL Rest/Stress 1 Lexiscan Day Radiopharmaceutical Dose (mCi) Administration Site Administered by Rest: Tc-99m 10.8 IV Christiana Katey, PRE SALES ARCHITECT Sestamibi Stress:Tc-99m 32.5 IV Christiana Katey, PRE SALES ARCHITECT Sestamibi Rest: 29-Mar-2024 60 Discovery 630 Stress: 29-Mar-2024 30 Discovery 630 0.4mg Lexiscan. Images obtained in supine and prone position. SPECT RESULTS Technical Quality: Good Raw Data Analysis: Normal Image Corrections: No attenuation or motion correction applied Summed Stress Score: 1 Summed Rest Score: 0 Summed Difference Score: 1 PERFUSION FINDINGS Medium sized area of fixed perfusion defect surrounded by moderate reversibility suggestive of old myocardial infarction surrounded by an scout- infarct ischemia. FUNCTIONAL RESULTS (calculated via Gated SPECT) Stress Image LV EF (%): 85 Stress EDV (mL):52 TID: 0.74 Stress ESV (mL):8 FUNCTIONAL FINDINGS: Medium sized area of there is normal left ventricular systolic function. IMPRESSIONS Medium size area of old myocardial infarction surrounded by moderate scout- infarct ischemia noted in anterior wall suggestive of possible lesion in LAD territory. Vera Graham MD (Electronically Signed) Final Date: 30 March 2024 12:54 S
--- NOTE | 2024-03-29 08:14 | ECG_ITS ---
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 Interpretive Statements LEXISCAN: Procedure: At the baseline, the blood pressure was 126/77 mmHg with a heart rate of 53 bpm. The electrocardiogram showed normal sinus rhythm, normal axis with normal ST and T's. The Lexiscan was infused over a period of 20 seconds. A total of 0.4 mg of Lexiscan was infused. The stress phase was continued for a total of 5 minutes. Heart rate was at the end of stress phase was 69 bpm and a blood pressure of 121/65 mmHg. The EKG at the peak infusion revealed normal sinus rhythm with no significant ST-T wave changes. Sestamibi was injected 20 seconds after the Lexiscan infusion. Conclusion: 1. Normal EKG response to Lexiscan infusion 2. No Lexiscan induced chest pain or cardiac arrhythmia. 3. Normal blood pressure and heart rate response. 4. Sestamibi/sestamibi perfusion scan pending; see separate report. Electronically Signed On 04-08-2024 23:12:10 SALICYLIC ACID BLENDER by Rodri Jo M.D. [email or web address]
[2024-03-29] MEDS: regadenoson 0.4 Mg/5 ml Syringe IVP (09:38)
[2024-03-29 09:56] VITALS: BP 121/76; PULSE 68
== END 2024-03-29 08:04 | disposition home or self-care (01) ==
LOC: CDL 08:03
PROVIDERS: PCP Nurse Practitioner; Visit Provider Internal Medicine Cardiovascular Disease
DX: R07.9 Chest pain, unspecified (principal); R93.1 Abnormal findings on diagnostic imaging of heart and coronary circulation; I99.8 Other disorder of circulatory system; I25.2 Old myocardial infarction
CPT/HCPCS: 36415; 78452; 93017; 96374; A9500; J2785

== ENCOUNTER 2024-04-03 06:16 | Day surgery (SDC) | payer OTHER, SELFPAY ==
[2024-04-03 06:32] VITALS: BP 138/95; PULSE 92; RESP 18; TEMP 36.2; O2SAT 99; BMI 24.0
[2024-04-03 06:38] LABS: Glucose Point of Care 141 mg/dL (70-110)
[2024-04-03] MEDS: sodium chloride 0.9% 500 ML 15 ML IV (06:39)
--- NOTE | 2024-04-03 06:52 | ANES.PREANE2 ---
Pre-Anesthetic Assessment Height/Weight: Height 1.73 m Weight 71.668 kg Temp Pulse Resp BP Pulse Ox O2 Del Method 97.1 F L 92 18 138/95 99 Room Air 04/03/24 06:32 04/03/24 06:32 04/03/24 06:32 04/03/24 06:32 04/03/24 06:32 04/03/24 06:32 Operation Date: 04/03/24 07:30 Proposed Procedures p EGD 59267, 04620, G0105, R12, R19.7(Not Applicable) - Per March MD s Colonoscopy(Not Applicable) - Per March MD Was Beta Warren taken within 24 hours: N/A Was Clonidine taken within 24 hours: N/A Last intake: Intake Last Liquid Date 04/02/24 Last Liquid Time 20:30 Last Solid Date 04/01/24 Last Solid Time 18:00 Social No alcohol and No tobacco quit smoking atleast 5 years ago Exam alert and oriented x 3 Airway Submandibular: within normal limits Cervical ROM: within normal limits Mallampati: Class II Dentition: full History/ROS No significant history except as noted Pulmonary Chronic Obstructive Pulmonary Disease (idiopathic pulm fibrosis) and Sleep Apnea (Cpap) CV/HEM Stable Angina (stress test neg) and Hypertension EF 68% None reported Hepatic None reported GI Gastroesophageal Reflux Disease Metabolic Hyperlipidemia [facility] [place] None reported Neuropsych None reported Anesthetic Plan ASA status: 3 Anesthesia: MAC Risk of > 500 ml blood loss (7ml/kg in children): No Medications/Allergies Home Medications Medication Instructions Recorded Confirmed Last Taken Type amlodipine 5 mg tablet 5 mg PO QDAY 04/05/19 03/30/24 04/03/24 05:30 History hydrochlorothiazide 25 mg tablet 25 mg PO QAM 04/05/19 03/30/24 04/03/24 05:30 History albuterol sulfate 2.5 mg/3 mL 2.5 mg inhalation Q6H PRN 09/18/20 04/03/24 04/02/24 History (0.083 %) solution for nebulization shortness of breath or wheezing cholecalciferol (vitamin D3) 50 2,000 unit PO DAILY 09/18/20 03/30/24 04/02/24 History mcg (2,000 unit) tablet cyanocobalamin (vitamin B-12) 1,000 mcg IM Q30D 09/18/20 03/30/24 03/08/24 History 1,000 mcg/mL injection solution gemfibrozil 600 mg tablet 600 mg PO BID 09/18/20 03/30/24 04/02/24 History nintedanib 150 mg capsule 150 mg PO Q12H 09/18/20 03/30/24 04/02/24 History potassium chloride 20 mEq 20 meq PO DAILY 09/18/20 03/30/24 04/02/24 History tablet,extended release(part/cryst) albuterol sulfate 90 mcg/actuation 2 puff inhalation QID PRN 08/27/21 03/30/24 04/02/24 History aerosol inhaler (ProAir HFA) Shortness Of Breath carboxymethylcellulose sodium 0.5 2 drp ophthalmic (eye) BID 08/27/21 03/30/24 03/29/24 History % eye drops (Refresh Tears) tiotropium bromide 2.5 1 puff inhalation DAILY 08/27/21 03/30/24 04/01/24 History mcg/actuation mist for inhalation (Spiriva Respimat) krill oil 500 mg capsule 500 mg PO DAILY 12/10/22 03/30/24 04/01/24 History buspirone 30 mg tablet 30 mg PO BID 90 days #180 tabs 09/13/23 03/30/24 04/02/24 Rx pantoprazole 40 mg tablet,delayed 40 mg PO BID 30 days #60 tabs 03/06/24 03/30/24 04/02/24 Rx release (Protonix) sucralfate 100 mg/mL oral 10 ml PO BID 30 days #840 mL 03/06/24 03/30/24 04/02/24 Rx suspension escitalopram oxalate 20 mg tablet 20 mg PO DAILY #90 tabs 03/14/24 03/30/24 04/02/24 Rx (Lexapro) hydroxyzine HCl 50 mg tablet 50 mg PO .HS #90 tabs 03/14/24 03/30/24 04/02/24 Rx trazodone 150 mg tablet 150 mg PO .HS #90 tabs 03/14/24 03/30/24 04/02/24 Rx Allergies Allergy/AdvReac Type Severity Reaction Status Date / Time oxycodone [From Percocet] Allergy itching Verified 03/30/24 08:49 atorvastatin AdvReac Unknown Muscle Verified 03/30/24 08:49 aches levofloxacin [From Levaquin] AdvReac joint and Verified 03/30/24 08:49 ligament pain sumatriptan [From Imitrex] AdvReac angina Verified 03/30/24 08:49 Current Medications Generic Name Dose Route Start Last Admin Trade Name Freq PRN Reason Stop Dose Admin Sodium Chloride 500 mls @ 15 mls/hr 04/03/24 06:18 04/03/24 06:39 Sodium Chloride 0.9% IV 04/04/24 06:17 15 mls/hr .Q24H PRN Administration COLONOSCOPY FLUIDS PFSH Anesthesia Medical History NITHIN (generalized anxiety disorder) Psychiatric care B12 deficiency Osteoporosis Anxiety and depression GERD (gastroesophageal reflux disease) History of Mclaughlin's esophagus Reactive thrombocytosis Mixed hyperlipidemia Diagnosed in her late 50s and is on medication managed by [facility]. Pulmonary fibrosis Diagnosed in 2019 and is under the care of speedometer mechanic Dr. Claros in [place] and states that they are working on getting her a lung transplant and is currently on medication for this. Chronic hypertension Diagnosed in 1999 and is controlled with medication managed by the [facility]. she does see Dr. Marrero COPD (chronic obstructive pulmonary disease) Diagnosed in her 50s and controlled with inhalers managed by the [facility]. Does not have a speedometer mechanic PTSD (post-traumatic stress disorder) Type 2 diabetes mellitus Was only ever diet-controlled and she states that her last hemoglobin C was normal Surgical History History of esophagogastroduodenoscopy (EGD) 08/28/21 Hx of colonoscopy 08/28/21 Hx of cataract extraction May 2020---bilateral S/P tubal ligation Done through umbilicus. S/P hysterectomy LAVH, BSO, Laparoscopic uterosacral ligament suspension with laparoscopic moschcowitz culdoplasty (enterocele repair) on 11/10/[address] He and Dr. Han. Pathology showed benign cervix, endometrium, myometrium and bilateral tubes and ovaries. S/P tonsillectomy Done at age 43 Hx of vaginal surgery Operative reports were requested and received from Dr. Elizalde. 06/20/2012-----> patient underwent an anterior and posterior colporrhaphy for cystocele and rectocele, manuelito plication. On exam in the clinic she had been noted to have a grade 3 bladder prolapse with MARITO prior to surgery. S/P arthroscopic surgery of right knee Arthroscopic right knee surgery for torn cartilage in 1977, [place] S/P lumpectomy, left breast x2- Performed in [place] Status post hysteroscopy 1998- with endometrial ablation, Performed in [place] for menorrhagia Status post surgery Skin cancer removal: 2002- removed from face. Performed in [place] 2014- Removed from arm by Dr Harrison in [place], [place] S/P cholecystectomy Laparoscopic cholecystectomy in 2012 Family History Sister Breast cancer diagnosed at age 40 Mother Hyperlipidemia Hypertension CAD (coronary artery disease) Father Heart disease Hypertension Lung disease Grandmother Diabetes maternal Denies family history of Colon cancer Ovarian cancer Clotting disorder Chronic kidney disease (CKD) Suicide Anesthesia complication Bleeding disorder Uterine cancer Thyroid disease Stroke Social History Smoking and tobacco/nicotine status: former use of tobacco/nicotine Alcohol intake: never Substance/Drug Use: never Data Anesthesia Cardiac Studies: Echocardiogram 12/20/23 Sestamibi Stress Test (Cardiology) 03/29/24
--- NOTE | 2024-04-03 07:00 | W.PM.OPSUD ---
Surgery/Procedure H&P Update DATE OF PROCEDURE: April 03, 2024 DATE H&P PERFORMED: 03/06/24 PLANNED PROCEDURE: Operation Date: 04/03/24 07:30 Proposed Procedures p EGD 19352, 02784, G0105, R12, R19.7(Not Applicable) - Per March MD s Colonoscopy(Not Applicable) - Per March MD
[2024-04-03 07:33] VITALS: BP 106/69; PULSE 64; RESP 18; TEMP 36.3; O2SAT 95
[2024-04-03 07:44] VITALS: BP 115/76; PULSE 59; RESP 18; O2SAT 92
[2024-04-03 07:57] VITALS: BP 139/83; PULSE 57; RESP 16; O2SAT 95
--- NOTE | 2024-04-03 15:34 | ANE.PACU2 ---
Inpatient post-anesthesia follow up: Airway intact: Yes Vital signs: Temperature 97.3 F Pulse Rate 57 Respiratory Rate 16 Blood Pressure 139/83 Pulse Oximetry 95 Oxygen Delivery Me thod Room Air Oxygen Flow Rate Fraction of Inspir ed Oxygen Hydration adequate: Yes Nausea and vomiting: No Pain level: 1 Mental status: Baseline
== END 2024-04-03 08:03 | disposition home or self-care (01) ==
PROVIDERS: PCP Nurse Practitioner; Visit Provider Student in an Organized Health Care Education/Training Program
PROC: 0DJ08ZZ Inspection of Upper Intestinal Tract, Via Natural or Artificial Opening Endoscopic (ICD-10-PCS; principal; 2024-04-03 07:30)
PROC: 0DJD8ZZ Inspection of Lower Intestinal Tract, Via Natural or Artificial Opening Endoscopic (ICD-10-PCS; CPT 45378; 2024-04-03 07:30)
DX: K52.831 Collagenous colitis (principal); K44.9 Diaphragmatic hernia without obstruction or gangrene; K29.50 Unspecified chronic gastritis without bleeding; Z87.891 Personal history of nicotine dependence; I10 Essential (primary) hypertension; K21.9 Gastro-esophageal reflux disease without esophagitis; J44.9 Chronic obstructive pulmonary disease, unspecified; G47.30 Sleep apnea, unspecified; E78.2 Mixed hyperlipidemia; I20.89 Other forms of angina pectoris; Z79.899 Other long term (current) drug therapy; J84.10 Pulmonary fibrosis, unspecified; F41.1 Generalized anxiety disorder; F32.A Depression, unspecified; M81.0 Age-related osteoporosis without current pathological fracture; Z85.828 Personal history of other malignant neoplasm of skin; Z90.710 Acquired absence of both cervix and uterus; Z90.49 Acquired absence of other specified parts of digestive tract
CPT/HCPCS: 36416; 43239; 45380; 82962; 88305; 88313; J2704; J7040

== ENCOUNTER → 2024-04-20 09:44 | Outpatient (BNVA) | payer OTHER, SELFPAY | PROVIDERS: PCP Nurse Practitioner; Visit Provider Student in an Organized Health Care Education/Training Program | DX: Z09 Encounter for follow-up examination after completed treatment for conditions other than malignant neoplasm (principal); R03.0 Elevated blood-pressure reading, without diagnosis of hypertension | CPT/HCPCS: 99213 ==

== ENCOUNTER 2024-07-24 11:44 | Emergency (ER) | payer OTHER, SELFPAY ==
[2024-07-24 12:06] VITALS: BP 162/82; PULSE 57; TEMP 36.7; O2SAT 96
--- NOTE | 2024-07-24 13:18 | ED_ITS ---
HPI - Wound/Laceration 2 General: Chief Complaint: Wound/Laceration Stated Complaint: ear lac Time Seen by Provider: 07/24/24 12:50 Source: patient Mode of arrival: ambulatory Limitations: no limitations History of Present Illness: Patient is a 69-year-old female presents to ED today for an evaluation of a right ear laceration. She states they were seated on her front porch when the wind accidentally grabbed their screen door causing it to fall and strike her right ear. No LOC. No headache. No neck pain. Tetanus is up-to-date. Onset (ago): hour(s) Location: other (R ear) Place: home Patient tetanus UTD: Yes Context: accidental Associated symptoms: Denies nausea or vomiting Related Data Home Medications ?Medication ?Instructions ?Recorded ?Confirmed amlodipine 5 mg tablet 5 mg PO QDAY 04/05/19 hydrochlorothiazide 25 mg tablet 25 mg PO QAM 04/05/19 06/06/24 albuterol sulfate 2.5 mg/3 mL 2.5 mg inhalation Q6H SC N 09/18/20 06/06/24 (0.083 %) solution for nebulization shortness of breat h or wheezing cholecalciferol (vitamin D3) 50 2,000 unit PO DAILY 06/06/24 mcg (2,000 unit) tablet cyanocobalamin (vitamin B-12) 1,000 mcg IM Q30D 06/06/24 1,000 mcg/mL injection solution gemfibrozil 600 mg tablet 600 mg PO BID 09/18/2006/06 nintedanib 150 mg capsule 150 mg PO Q12H 09/18/2004/01 potassium chloride 20 mEq 20 meq PO DAILY 09/18/2004/01 tablet,extended release(part/cryst) albuterol sulfate 90 mcg/actuation 2 puff inhalation Q ID PRN 08/27/21 06/06/24 aerosol inhaler (ProAir HFA) Shortness Of Breath carboxymethylcellulose sodium 0.5 2 drp ophthalmic (ey e) BID 08/27/21 06/06/24 % eye drops (Refresh Tears) tiotropium bromide 2.5 1 puff inhalation DAILY 06/2 2/22 04/01/25 mcg/actuation mist for inhalation (Spiriva Respimat) krill oil 500 mg capsule 500 mg PO DAILY 12/10/2204/01 Previous Rx's ?Medication ?Instructions ?Recorded pantoprazole 40 mg tablet,delayed 40 mg PO BID 30 days #60 tabs 03/06/24 release (Protonix) sucralfate 100 mg/mL oral 10 ml PO BID 30 days #840 mL 03/06/24 suspension buspirone 30 mg tablet 30 mg PO BID 90 days #180 ta bs 06/06/24 escitalopram oxalate 20 mg tablet 20 mg PO DAILY #90 t abs 06/06/24 (Lexapro) hydroxyzine HCl 50 mg tablet 50 mg PO .HS #90 tabs 04/01 trazodone 150 mg tablet 150 mg PO .HS #90 tabs 06/06 Allergies Allergy/AdvReac Type Severity Reaction Status Date / Time oxycodone (From Percocet) Allergy itching Verified 07/24/24 12:12 atorvastatin AdvReac Unknown Muscle Verified 07/24/24 12:12 aches levofloxacin (From Levaquin) AdvReac joint and Verified 07/24/24 12:12 ligament pain sumatriptan (From Imitrex) AdvReac angina Verified 07/24/24 12:12 Review of Systems 2 ENMT: Reports: ear or mastoid pain (R ear laceration); Denies: ear discharge, change in hearing, tinnitus or disequilibrium GI: Denies: nausea or vomiting Musc: Denies: neck pain Neuro: Denies: headache(s) PFSH ED 2 PFSH: Medical History NITHIN (generalized anxiety disorder) Psychiatric care B12 deficiency Osteoporosis Anxiety and depression GERD (gastroesophageal reflux disease) History of Mclaughlin's esophagus Reactive thrombocytosis Mixed hyperlipidemia Diagnosed in her late 50s and is on medication managed by the [facility]. Pulmonary fibrosis Diagnosed in 2019 and is under the care of inclusion special education teacher Dr. Claros in [place] and states that they are working on getting her a lung transplant and is currently on medication for this. Chronic hypertension Diagnosed in 1999 and [facility] Marrero COPD (chronic obstructive pulmonary disease) Diagnosed in her 50s and controlled with inhalers managed by the [facility]. Does not have a inclusion special education teacher PTSD (post-traumatic stress disorder) Type 2 diabetes mellitus Was only ever diet-controlled and she states that her last hemoglobin C was normal Surgical History History of esophagogastroduodenoscopy (EGD) 08/28/21 Hx of colonoscopy 08/28/21 Hx of cataract extraction May 2020---bilateral S/P tubal ligation Done through umbilicus. S/P hysterectomy LAVH, BSO, Laparoscopic uterosacral ligament suspension with laparoscopic moschcowitz culdoplasty (enterocele repair) on 11/10/[address] He and Dr[address] Han. Pathology showed benign cervix, endometrium, myometrium and bilateral tubes and ovaries. S/P tonsillectomy Done at age 43 Hx of vaginal surgery Operative reports were requested and received from Dr. Elizalde. 06/20/2012-----> patient underwent an anterior and posterior colporrhaphy for cystocele and rectocele, manuelito plication. On exam in the clinic she had been noted to have a grade 3 bladder prolapse with MARITO prior to surgery. S/P arthroscopic surgery of right knee Arthroscopic right knee surgery for torn cartilage in 1977, [place] S/P lumpectomy, left breast x2- Performed in [place] Status post hysteroscopy 1998- with endometrial ablation, Performed in [place] for menorrhagia Status post surgery Skin cancer removal: 2002- removed from face. Performed in [place] 2014- Removed from arm by Dr Harrison in [place], [place] S/P cholecystectomy Laparoscopic cholecystectomy in 2012 Family History Sister Breast cancer diagnosed at age 40 Mother Hyperlipidemia Hypertension CAD (coronary artery disease) Father Heart disease Hypertension Lung disease Grandmother Diabetes maternal Denies family history of Colon cancer Ovarian cancer Clotting disorder Chronic kidney disease (CKD) Suicide Anesthesia complication Bleeding disorder Uterine cancer Thyroid disease Stroke Social History Smoking and tobacco/nicotine status: former use of tobacco/nicotine Alcohol intake: never Substance/Drug Use: never Physical Exam 2 Const: COMMON NORMALS: no acute distress, average body habitus, patient oriented x3, no limitations, healthy appearing, alert and well nourished G ENERAL APPEARANCE: cooperative ORIENTATION/CONSCIOUSNESS: Yes awake, Yes oriented to person, Yes oriented to place and Yes oriented to time HENMT: COMMON NORMALS: normocephalic, atraumatic, EAC's normal, TM's normal bilaterally and Normal external nose present HEAD & SCALP: normal to inspection, normocephalic and atraumatic FACE & SINUS: normal facial exam, sinuses nontender and face symmetric NOSE: Normal external nose present E XTERNAL EAR: Yes mastoids normal and Yes no periauricular adenopathy EXTERNAL AUDITORY CANAL: EAC's normal TYMPANIC MEMBRANE: TM's normal bilaterally EAR IMAGES: 1. superficial flap laceration Eye: COMMON NORMALS: Equal, round and reactive pupils present and EOMs intact bilaterally GENERAL EYE: appearance normal, both eyes and all related structures and normal light reflex PUPIL: Yes Equal, round and reactive pupils present DIRECT OPHTHALMOSCOPY: Yes normal light reflex Neck/C-Spine: COMMON NORMALS: full ROM GENERAL: Yes normal visual inspection CERVICAL SPINE: No Cervical spine tenderness Extremity: GENERAL: Yes normal exam except as noted Neuro: SEMAJ COMA SCALE: document GCS findings Billingsley coma scale eye opening: Spontaneous Semaj coma scale verbal response: Orientated Billingsley coma scale motor response: Obey commands Billingsley coma scale total score: 15 COMMON NORMALS: patient oriented x3, CN's II-XII intact bilaterally, moves all extremities, no focal motor deficits, no sensory deficits noted and gait normal SENSORIUM/ORIENTATION: Yes alert, Yes oriented to person, Yes oriented to place and Yes oriented to time Skin: TRAUMA: laceration Procedures Laceration Laceration 1: Site: other (R ear) Side (If applicable): right Size (cm): 1.25 Description: flap Depth: simple, single layer Local Anesthetic: lidocaine 2% Amount of anesthesia used (mL): 0.5 Pre-repair: wound explored and irrigated extensively Skin layer closed with: nylon Size (cm): 5-0 Number of sutures: 5 Technique: simple, interrupted Course 2 Vital Signs: Vital signs: Vital Signs Temperature 98.0 F 07/24/24 12:06 Pulse Rate 57 L 07/24/24 12:06 Blood Pressure 162/82 07/24/24 12:06 Pulse Oximetry 96 07/24/24 12:06 Oxygen Delivery Me thod Room Air 07/24/24 12:06 MDM - Wound/Laceration Medical Decision Making Wound was copiously irrigated and repaired as documented. Wound care/infection precautions discussed. Her tetanus is up-to-date. Differential Diagnosis Likely laceration Medical Records I reviewed the patient's medical records. No radiology studies performed this visit Discharge Plan Discharge Patient Disposition: Home Clinical Impression: Laceration of right ear Qualifiers: Encounter type: initial encounter Qualified Code(s): S01.311A - Laceration without foreign body of right ear, initial encounter Condition: Stable Prescriptions: No Action amlodipine 5 mg tablet 5 mg PO QDAY hydrochlorothiazide 25 mg tablet 25 mg PO QAM gemfibrozil 600 mg tablet 600 mg PO BID albuterol sulfate 2.5 mg /3 mL (0.083 %) solution for nebulization 2.5 mg inhalation Q6H PRN (Reason: shortness of breath or wheezing) cyanocobalamin (vitamin B-12) 1,000 mcg/mL solution 1,000 mcg IM Q30D nintedanib 150 mg capsule 150 mg PO Q12H potassium chloride 20 mEq tablet,ER particles/crystals 20 meq PO DAILY cholecalciferol (vitamin D3) 50 mcg (2,000 unit) tablet 2,000 unit PO DAILY buspirone 30 mg tablet 30 mg PO BID 90 Days Qty: 180 3RF escitalopram oxalate [Lexapro] 20 mg tablet 20 mg PO DAILY Qty: 90 0RF hydroxyzine HCl 50 mg tablet 50 mg PO .HS Qty: 90 0RF trazodone 150 mg tablet 150 mg PO .HS Qty: 90 0RF krill oil 500 mg capsule 500 mg PO DAILY sucralfate 100 mg/mL suspension 10 ml PO BID 30 Days Qty: 840 0RF Rx Instructions: You can change to tablets if needed for insurance Protonix 40 mg tablet,delayed release (DR/EC) 40 mg PO BID 30 Days Qty: 60 2RF carboxymethylcellulose sodium [Refresh Tears] 0.5 % drops 2 drp ophthalmic (eye) BID albuterol sulfate [ProAir HFA] 90 mcg/actuation HFA aerosol inhaler 2 puff INHALATION QID PRN (Reason: Shortness Of Breath) Spiriva Respimat 2.5 mcg/actuation mist 1 puff INHALATION DAILY Discharge Orders: Discharge ED (Routine); Ordered 07/24/24 Ordered By: Kenna Patterson Referrals: Jackie Jenkins FNP [Primary Care Provider, Nurse Practitioner] Patient Instructions: Laceration (DC) Activity Restrictions/Additional Instructions: Keep wound/laceration clean with warm soap and water twice daily. Monitor for signs of infection such as redness, swelling, increased pain, or drainage. Please seek medical re-evaluation if these occur. If you received sutures today these will need to be removed (unless you were told by the provider that they are absorbable). The provider should have discussed with you the length of time until removal-5 to 7 DAYS. Print Language: Maori Coding Level of Care Code ED Sales Enablement Specialist for Paul Duque
[2024-07-24 14:18] VITALS: BP 160/80; PULSE 60; RESP 16; O2SAT 98
== END 2024-07-24 14:20 | disposition home or self-care (01) ==
PROVIDERS: Emergency Provider Physician Assistant; PCP Nurse Practitioner
DX: S01.311A Laceration without foreign body of right ear, initial encounter (principal); Z87.891 Personal history of nicotine dependence; J44.9 Chronic obstructive pulmonary disease, unspecified; E78.2 Mixed hyperlipidemia; E11.9 Type 2 diabetes mellitus without complications; I10 Essential (primary) hypertension; X58.XXXA Exposure to other specified factors, initial encounter
CPT/HCPCS: 12011; 99283

== ENCOUNTER → 2024-09-15 10:18 | Outpatient (BNVA) | payer OTHER, SELFPAY | PROVIDERS: PCP Nurse Practitioner; Visit Provider Nurse Practitioner Family | DX: I25.10 Atherosclerotic heart disease of native coronary artery without angina pectoris (principal); I10 Essential (primary) hypertension; E78.5 Hyperlipidemia, unspecified; J84.10 Pulmonary fibrosis, unspecified; G47.33 Obstructive sleep apnea (adult) (pediatric); Z87.891 Personal history of nicotine dependence | CPT/HCPCS: 99213 ==

== ENCOUNTER → 2024-11-24 08:35 | Outpatient (BNVA) | payer OTHER, SELFPAY | PROVIDERS: PCP Nurse Practitioner; Visit Provider Nurse Practitioner Family | DX: L92.0 Granuloma annulare (principal); S20.462A Insect bite (nonvenomous) of left back wall of thorax, initial encounter; X58.XXXA Exposure to other specified factors, initial encounter; L82.1 Other seborrheic keratosis; L57.8 Other skin changes due to chronic exposure to nonionizing radiation; Z08 Encounter for follow-up examination after completed treatment for malignant neoplasm; Z85.828 Personal history of other malignant neoplasm of skin; L57.0 Actinic keratosis | CPT/HCPCS: 17000; 99214 ==

== ENCOUNTER 2024-12-27 08:45 | Outpatient (CLI) | payer OTHER, SELFPAY ==
--- NOTE | 2024-12-27 08:49 | MM_ITS ---
WS: [id number] BILATERAL SCREENING DIGITAL TOMOSYNTHESIS MAMMOGRAM WITH CAD HISTORY: SCREENING COMPARISON: 11/15/2023, 01/05/2023, 11/24/2021 Bilateral CC and MLO views with tomosynthesis and synthetic mammography submitted. Computer aided detection analyzed. Breast composition: The breasts are extremely dense, which lowers the sensitivity of mammography. No suspicious masses, microcalcifications or architectural distortion. Benign calcifications in each breast. MM/MM scr tomosynthesis [id number] IMPRESSION: BI-RADS: 2 - Benign FOLLOW UP: 1 Year Follow-up
== END 2024-12-27 08:46 | disposition home or self-care (01) ==
LOC: RAD 08:47
PROVIDERS: PCP Nurse Practitioner; Visit Provider Nurse Practitioner
DX: Z12.31 Encounter for screening mammogram for malignant neoplasm of breast (principal); R92.343 Mammographic extreme density, bilateral breasts; R92.1 Mammographic calcification found on diagnostic imaging of breast
CPT/HCPCS: 77063; 77067